=== PATIENT | female | born 1950 | race Caucasian/White ===

== ENCOUNTER → 2022-11-28 | Outpatient (CLI) | payer MEDICARE, SELFPAY | END | disposition home or self-care (01) | LOC: MFPLAB 15:14 | PROVIDERS: PCP Family Medicine; Visit Provider Family Medicine | DX: E03.9 Hypothyroidism, unspecified (principal) | CPT/HCPCS: 36415; 84443 ==

== ENCOUNTER → 2023-01-12 | Outpatient (CLI) | payer MEDICARE, SELFPAY ==
[2023-01-12 17:45] LABS: Absolute Lymphocyte Count 1.56 X10^3/uL (0.83-4.51); Absolute Neutrophil Count 5.2 X10^3/uL (2.0-7.7); Basophil# 0.04 X10^3/uL; Basophil% 0.5 % (0-1); Eosinophils% 1.3 % (0-5); Hematocrit 38.3 % (37-47); Hemoglobin 12.5 g/dL (12.0-15.0); Lymphocyte # 1.56 X10^3/ul (0.83-4.51); Lymphocyte % 20.7 % (19-41); Mean Corp Hgb Conc 32.6 g/dL (32-36); Mean Corpuscular Hgb 30.6 pg (27.0-32.0); Mean Corpuscular Volume 93.6 fL (81-99); Mean Platelet Vol. 11.3 fl (6.2-12.0); Monocyte# 0.55 X10^3/uL; Monocyte% 7.3 % (0-10); NRBC Flagged by Analyzer 0 % (0-5); Neutrophil # 5.24 X10^3/uL (2.7-7.7); Neutrophil % 69.8 % (47-70); Platelet Count 276 K/mm3 (150-450); RBC Distribution Width CV 12.9 % (11.6-14.6); RBC Distribution Width SD 44.4 fl (35.1-43.9); Red Blood Count 4.09 M/mm3 (4.2-5.4); White Blood Count 7.5 K/mm3 (4.4-11.0)
[2023-01-12 18:14] LABS: ALB/GLOB Ratio 1.3 RATIO (0.9-2.4); AST(SGOT) 14 U/L (15-37); Alanine Aminotransfer ALT/SGPT 15 U/L (13-56); Albumin, Serum 4.1 g/dL (3.2-5.0); Alkaline Phosphatase 74 U/L (45-117); Anion Gap 7 (5-15); BUN 17 mg/dL (7-18); BUN/Creat Ratio 24.3 RATIO (10-20); Calcium,Total 10.1 mg/dL (8.5-10.1); Chloride 108 mmol/L (98-107); Cholesterol 205 mg/dL (200); EST Glomerular Filtration Rate 88 mL/min (>60); Est Glom Filt Rate - Afr Amer 106 mL/min (>60); Globulin 3.2 g/dL (2.2-4.2); Glucose 120 mg/dL (74-106); High Density Lipoprotein 63 mg/dL; Potassium 3.8 mmol/L (3.5-5.1); Protein, Total 7.3 g/dL (6.4-8.2); Sodium Level 142 mmol/L (136-145); Triglycerides 387 mg/dL; Very Low Density Lipoprotein 77 mg/dL (5-40)
[2023-01-16 17:15] LABS: Vitamin D,25 Hydroxy 35.1 ng/mL
== END | disposition home or self-care (01) ==
LOC: MFPLAB 14:40
PROVIDERS: PCP Family Medicine; Visit Provider Family Medicine
DX: I10 Essential (primary) hypertension (principal); R53.83 Other fatigue; M81.0 Age-related osteoporosis without current pathological fracture
CPT/HCPCS: 36415; 80053; 80061; 82306; 82533; 85025

== ENCOUNTER → 2023-01-25 | Outpatient (CLI) | payer MEDICARE, SELFPAY ==
[2023-01-25 11:17] LABS: Hemoglobin A1c 5.2 % (3.8-5.6)
== END | disposition home or self-care (01) ==
LOC: MTLAB 08:56
PROVIDERS: PCP Family Medicine; Visit Provider Family Medicine
DX: R73.9 Hyperglycemia, unspecified (principal)
CPT/HCPCS: 36415; 83036

== ENCOUNTER → 2023-04-17 | Outpatient (CLI) | payer MEDICARE, SELFPAY ==
[2023-04-17 12:56] LABS: Thyroid Stim Hormone (TSH) 1.08 uIU/mL (0.358-3.74)
== END | disposition home or self-care (01) ==
LOC: MFPLAB 09:48
PROVIDERS: PCP Family Medicine; Visit Provider Family Medicine
DX: E03.9 Hypothyroidism, unspecified (principal)
CPT/HCPCS: 36415; 84443

== ENCOUNTER → 2023-05-25 | Outpatient (CLI) | payer MEDICARE, SELFPAY ==
--- NOTE | 2023-05-25 15:03 | CT_ITS ---
STUDY: CT BRAIN WITHOUT CONTRAST REASON FOR EXAM: Female, 72 years old. Head injury RADIATION DOSAGE (If Supplied By Facility): CTDIvol = ( 44.99 ) mGy, DLP = ( 815.79 ) mGycm TECHNIQUE: Transaxial CT imaging of the brain was performed without administration of intravenous contrast material. Individualized dose optimization techniques were used for this CT. COMPARISON: No relevant priors. FINDINGS: Normal soft tissue structures. Normal calvarium. There is mild cerebral atrophy with widening of the extra-axial spaces and ventricular dilatation. There are areas of decreased attenuation within the white matter tracts of the supratentorial brain, consistent with microvascular disease changes. 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 Normal brainstem. Normal cerebellum. There is no intracranial hemorrhage. There are no findings of an acute ischemic infarction. Normal visualized paranasal sinuses. CT/Brain/Head without Contrast IMPRESSION: Chronic involutional changes of the brain. Electronically Signed: Balbir Verma MD at 15:21 EST ,
== END | disposition home or self-care (01) ==
LOC: CT 14:50
PROVIDERS: PCP Family Medicine; Referring Provider Family Medicine; Visit Provider Family Medicine
DX: S09.90XA Unspecified injury of head, initial encounter (principal); X58.XXXA Exposure to other specified factors, initial encounter
CPT/HCPCS: 70450

== ENCOUNTER → 2023-09-06 | Outpatient (CLI) | payer MEDICARE, SELFPAY ==
[2023-09-06 13:36] LABS: Mucous, Urine 0 SEEN /hpf (<or=2+); Red Blood Cells-Urine 0 SEEN /hpf (0-5); Squamous Epithelial Cells - UA 0 SEEN /hpf (5-10)
[2023-09-06 15:04] LABS: Color, Urine Yellow (Yellow); Glucose, Dipstick Normal (Normal); Ketone-Dipstick 5 mg/dl (Negative); Leukocyte Esterase-Dipstick 500 /ul (Negative); Nitrite-Dipstick Positive (Negative); Occult Blood-Urine 25 /ul (Negative); Protein-Dipstick 30 mg/dl (Negative); Specific Gravity, Urine 1.025 (1.002-1.030); Urine Bilirubin Dipstick Negative (Negative); Urine Clarity Sl. Cloudy (Clear); Urine Urobilinogen Normal (Normal)
[2023-09-06 15:37] LABS: Bacteria 3+ /hpf (None Seen); White Blood Cells 50-100 SEEN /hpf (0-5)
[2023-09-06 15:40] LABS: Vitamin B12 > 2000 pg/mL (211-911); Vitamin D,25 Hydroxy 30.7 ng/mL
[2023-09-06 16:09] LABS: ALB/GLOB Ratio 1.1 RATIO (0.9-2.4); AST(SGOT) 23 U/L (15-37); Alanine Aminotransfer ALT/SGPT 48 U/L (13-56); Albumin, Serum 4.1 g/dL (3.2-5.0); Alkaline Phosphatase 130 U/L (45-117); Anion Gap 8 (5-15); BUN 19 mg/dL (7-18); Calcium,Total 9.8 mg/dL (8.5-10.1); Chloride 108 mmol/L (98-107); Cholesterol 385 mg/dL (200); Creatinine, Serum 0.66 mg/dL (0.55-1.02); EST Glomerular Filtration Rate 95 mL/min (>60); Est Glom Filt Rate - Afr Amer 115 mL/min (>60); Free T3 2.4 pg/mL (2.18-3.98); Globulin 3.6 g/dL (2.2-4.2); Glucose 95 mg/dL (74-106); High Density Lipoprotein 43 mg/dL; Potassium 4.1 mmol/L (3.5-5.1); Protein, Total 7.7 g/dL (6.4-8.2); Sodium Level 141 mmol/L (136-145); T4 Free Direct 1.18 ng/dL (0.76-1.46); Thyroid Stim Hormone (TSH) 1.07 uIU/mL (0.358-3.74); Triglycerides 665 mg/dL
== END | disposition home or self-care (01) ==
LOC: MFPLAB 12:32
PROVIDERS: PCP Family Medicine; Visit Provider Family Medicine
DX: I10 Essential (primary) hypertension (principal); G20.A1 Parkinson's disease without dyskinesia, without mention of fluctuations; E78.5 Hyperlipidemia, unspecified; E03.9 Hypothyroidism, unspecified; E55.9 Vitamin D deficiency, unspecified; R30.0 Dysuria
CPT/HCPCS: 36415; 80053; 80061; 81001; 82306; 82607; 82746; 84439; 84443; 84481; 87077; 87086; 87088; 87186

== ENCOUNTER 2023-10-31 11:30 | Outpatient (RCR) | payer MEDICARE, SELFPAY ==
--- NOTE | 2023-07-23 16:13 | HP.PTEVAL_ITS ---
Patient's Visit Information Visit Information Visit Information: KIARA VAUGHN is a 72 year old F referred to Physical Therapy by Ayde Obrien MD with a diagnosis of Parkinsons without dyskinesia. Date of Evaluation: 07/23/23 Physical Therapist: FLORIN Gomez Visit Plan Frequency: 2x /Week Duration: 2 Months Plan: 2X/ week for 8 weeks for gait training, balance, sit to stand transfers, dual tasking, endurance with HEP Subjective Subjective: Pt was diagnosed with PD about a year ago. The Dr recommended that she take regular exercise. She rides a stationary bike for 30 min about once a day. She has trouble getting out of a chair. She sleeps in a bed and takes meds to sleep and sleeps good. She is able to roll around the bed. She takes a bath in tub and she is using a stool to shower in the bathtub and has a hand held shower head also. She does not drive. She has had several falls since May 14 3-4 falls. She stumbled on a rug a few times and gotten rid of those. She does not remember her falls but her thinks BW mostly. She uses the can all the time even in the house. She feels that her R arm is discordinated and decreased handwriting. She is struggling with folding and washing and putting things in the dryer. She feels fine when she gets up in the morning and by 10:00 she will feel wooy... she feels like she is going to fall even in sitting. Steps: in front of her and uses a handrail with 2 feet to a stair. Objective Objective: Gait: PT WALKs with a straight cane or holding onto her husbands arm looking straight ahead. She is able to walk with a rolling walker with increase confidence and able to turn her head with gait more confidently Sit to stand: stood up using B UE's with retro LOB back into the chair with no weight shift FW. To sit back down in the chair she holds heavily onto B chair rails and plops into the chair Seated opp arm and leg... able to do until about 12 and then goes to same side... about the same in standing but with very little weight shift LE MMT: R hip flex 13.3 and L 11.5 R knee ext 24.6 and L 27 R knee flex 12.7 and L knee flex 8.8 Standing heel and toe raises: pt is able to do that but needs UE support and only able to raise them partly Standing with feet together she had some increase sway. Standing with feet together with horizontal head turns she got a little woozy feeling but normally feels this way this time of day. FGA 8 Balance/Special Test Scores Functional Gait Assessment Score: 8 % Disability: 73.3400 Lower Extremity Functional Score: 7 Goals Goal 1:: I HEP Goal Time Frame: 6-8 Weeks Goal 2:: Increase balance (FGA 8 at eval) Goal Time Frame: 6-8 Weeks Goal 3:: Be able to sit to stand out of a chair X 10 in a row with no UE and no LOB including falling BW into her chair Goal Time Frame: 6-8 Weeks Goal 4:: Be able to walk with a straight cane 150 fee without veering with CGA and some occ head turns without LOB as well or dizziness Goal Time Frame: 6-8 Weeks Goal 5:: Be able to complet X 20 in a row opp arm and leg tasks with a mind task without messing up Goal Time Frame: 6-8 Weeks Rehabilitation Potential Rehabilitation Potential: Good Anticipated Interventions Patient/Client Instruction: Educate patient on: Condition and Plan of Care For the Purpose of:: To increase ROM, To improve muscle performance and motor function, To improve ability to perform ADL's, To increase tolerance to activity/condition/position, To improve performance and independence with ADL's, To decrease level of supervision to perform tasks, To improve ability of physical actions for home/community/work/leisure, To improve gait and locomotor functions, To decrease soft tissue restriction, To improve endurance, To improve balance and To improve safety with gait Therapeutic Exercise to Include: Strength training, Endurance training, Balance training, Coordination, Body mechanics, Postural training, Flexibilty training, Gait and locomotor training, Neuromotor development, Active ROM and Dynamic Lumbar Stabilization For the Purpose of:: To decrease pain, To increase ROM, To improve nutrient delivery to tissue, To improve muscle performance and motor function, To improve ability to perform ADL's, To increase tolerance to activity/condition/position, To decrease level of supervision to perform tasks, To improve ability of p hysical actions for home/community/work/leisure, To improve gait and locomotor functions, To improve health of tissue, To decrease soft tissue restriction, To increase flexibility/ROM, To improve endurance, To improve balance and To improve safety with gait Functional Training to Include: Gait training For the Purpose of:: To improve gait and locomotor functions and To improve safety with gait Text: Thank you for the opportunity to evaluate your patient. For Medicare and Medicare HMO plans, please review the plan of care and approve it. It will need to be FAXED BACK to us at [phone] for Medicare purposes. For Medicare only, by signing this I certify the plan of care. Please let me know if there are questions or concerns regarding this plan of care. Physician Signature: Date:
--- NOTE | 2023-08-27 15:26 | HP.PTEVAL_ITS ---
Patient's Visit Information Visit Information Visit Information: KIARA VAUGHN is a 72 year old F referred to Physical Therapy by Ayde Obrien MD with a diagnosis of Parkinsons without dyskinesia. Date of Evaluation: 07/23/23 Physical Therapist: FLORIN Gomez Visit Plan Frequency: 2x /Week Duration: 2 Months Plan: Pt to work on standing with holding hand with head and eye m ovements together. Try and work on staggered stance head movements 2X/ week for 8 weeks for gait training, balance, sit to stand transfers, dual tasking, endurance with HEP Subjective Subjective: Pt was diagnosed with PD about a year ago. The Dr recommended that she take regular exercise. She rides a stationary bike for 30 min about once a day. She has trouble getting out of a chair. She sleeps in a bed and takes meds to sleep and sleeps good. She is able to roll around the bed. She takes a bath in tub and she is using a stool to shower in the bathtub and has a hand held shower head also. She does not drive. She has had several falls since May 14 3-4 falls. She stumbled on a rug a few times and gotten rid of those. She does not remember her falls but her thinks BW mostly. She uses the can all the time even in the house. She feels that her R arm is discordinated and decreased handwriting. She is struggling with folding and washing and putting things in the dryer. She feels fine when she gets up in the morning and by 10:00 she will feel wooy... she feels like she is going to fall even in sitting. Steps: in front of her and uses a handrail with 2 feet to a stair. Objective Objective: Gait: PT WALKs with a straight cane or holding onto her husbands arm looking straight ahead. She is able to walk with a rolling walker with increase confidence and able to turn her head with gait more confidently Sit to stand: stood up using B UE's with retro LOB back into the chair with no weight shift FW. To sit back down in the chair she holds heavily onto B chair rails and plops into the chair Seated opp arm and leg... able to do until about 12 and then goes to same side... about the same in standing but with very little weight shift LE MMT: R hip flex 13.3 and L 11.5 R knee ext 24.6 and L 27 R knee flex 12.7 and L knee flex 8.8 Standing heel and toe raises: pt is able to do that but needs UE support and only able to raise them partly Standing with feet together she had some increase sway. Standing with feet together with horizontal head turns she got a little woozy feeling but normally feels this way this time of day. FGA 8 Balance/Special Test Scores Functional Gait Assessment Score: 8 % Disability: 73.3400 Lower Extremity Functional Score: 7 Goals Goal 1:: I HEP Goal Time Frame: 6-8 Weeks Goal 2:: Increase balance (FGA 8 at [facility]) Goal Time Frame: 6-8 Weeks Goal 3:: Be able to sit to stand out of a chair X 10 in a row with no UE and no LOB including falling BW into her chair Goal Time Frame: 6-8 Weeks Goal 4:: Be able to walk with a straight cane 150 fee without veering with CGA and some occ head turns without LOB as well or dizziness Goal Time Frame: 6-8 Weeks Goal 5:: Be able to complet X 20 in a row opp arm and leg tasks with a mind task without messing up Goal Time Frame: 6-8 Weeks Rehabilitation Potential Rehabilitation Potential: Good Anticipated Interventions Patient/Client Instruction: Educate patient on: Condition and Plan of Care For the Purpose of:: To increase ROM, To improve muscle performance and motor function, To improve ability to perform ADL's, To increase tolerance to activity/condition/position, To improve performance and independence with ADL's, To decrease level of supervision to perform tasks, To improve ability of physical actions for home/community/work/leisure, To improve gait and locomotor functions, To decrease soft tissue restriction, To improve endurance, To improve balance and To improve safety with gait Therapeutic Exercise to Include: Strength training, Endurance training, Balance training, Coordination, Body mechanics, Postural training, Flexibilty training, Gait and locomotor training, Neuromotor development, Active ROM and Dynamic Lumbar Stabilization For the Purpose of:: To decrease pain, To increase ROM, To improve nutrient delivery to tissue, To improve muscle performance and motor function, To improve ability to perform ADL's, To increase tolerance to activity/condition/position, To decrease level of supervision to perform tasks, To improve ability of physical actions for home/community/work/leisure, To improve gait and locomotor functions, To improve health of tissue, To decrease soft tissue restriction, To increase flexibility/ROM, To improve endurance, To improve balance and To improve safety with gait Functional Training to Include: Gait training For the Purpose of:: To improve gait and locomotor functions and To improve safety with gait Text: Thank you for the opportunity to evaluate your patient. For Medicare and Medicare HMO plans, please review the plan of care and approve it. It will need to be FAXED BACK to us at [phone] for Medicare purposes. For Medicare only, by signing this I certify the plan of care. Please let me know if there are questions or concerns regarding this plan of care. Physician Signature: Date:
--- NOTE | 2023-09-19 12:08 | HP.PTREVAL ---
Re-Evaluation Intro: Ayde Obrien MD, It has been my pleasure to treat KIARA VAUGHN over the last 15 visits for Parkinsons without dyskinesia. Please see the progress note below for an update on the physical therapy plan of care! Subjective Subjective: No dizziness since she started the pills for her UTI. She feels that her balance has been better since the medication but her still sees her being wobbly. Pt is using her rollator or a walker at all times. reports that getting out of a car, steps, and sit to stand remain an issue. also reports that they will be doing a trial for people with PSP Objective Objective/Function: Stairs: up recip with 2 rails and down step 2 pattern with 2 hand rails FGA: Sitting opp arm and leg: smaller motions and would speed up and slow down her ROM and messed up consistently at 8 on each side Gait with rollator is smooth and no veering and she even initiates turning her head with gait Sit to stand: if cued she will pull self to edge of chair and stand up with weight shift FW. If asked to get up and will have retro LOB and not weight shift FW Plan Plan Plan: 2X/ week for 8 weeks for gait training, balance, sit to stand transfers, dual tasking, endurance with HEP Balance/Gait/Functional tests Balance/Special Test Scores Functional Gait Assessment Score: 10 % Disability: 66.6700 Lower Extremity Functional Score: 19 Goals Goals Goal 1:: I HEP Goal Time Frame: 6-8 Weeks Goal 2:: Increase balance (FGA 8 at eval) Goal Time Frame: 6-8 Weeks Goal 3:: Be able to sit to stand out of a chair X 10 in a row with no UE and no LOB including falling BW into her chair Goal Time Frame: 6-8 Weeks Goal 4:: Be able to walk with a straight cane 150 fee without veering with CGA and some occ head turns without LOB as well or dizziness Goal Time Frame: 6-8 Weeks Goal 5:: Be able to complet X 20 in a row opp arm and leg tasks with a mind task without messing up Goal Time Frame: 6-8 Weeks Anticipated Interventions Anticipated Interventions Patient/Client Instruction: Educate patient on: Condition and Plan of Care For the Purpose of:: To increase ROM, To improve muscle performance and motor function, To improve ability to perform ADL's, To increase tolerance to activity/condition/position, To improve performance and independence with ADL's, To decrease level of supervision to perform tasks, To improve ability of physical actions for home/community/work/leisure, To improve gait and locomotor functions, To decrease soft tissue restriction, To improve endurance, To improve balance and To improve safety with gait Therapeutic Exercise to Include: Strength training, Endurance training, Balance training, Coordination, Body mechanics, Postural training, Flexibilty training, Gait and locomotor training, Neuromotor development, Active ROM and Dynamic Lumbar Stabilization For the Purpose of:: To decrease pain, To increase ROM, To improve nutrient delivery to tissue, To improve muscle performance and motor function, To improve ability to perform ADL's, To increase tolerance to activity/condition/position, To decrease level of supervision to perform tasks, To improve ability of physical actions for home/community/work/leisure, To improve gait and locomotor functions, To improve health of tissue, To decrease soft tissue restriction, To increase flexibility/ROM, To improve endurance, To improve balance and To improve safety with gait Functional Training to Include: Gait training For the Purpose of:: To improve gait and locomotor functions and To improve safety with gait Re-Evaluation Ending Re-evaluation ending: Please do not hesitate to contact me at [phone] by phone or if you have questions or concerns regarding this new plan of care! Sincerely, FLORIN Gomez
--- NOTE | 2023-10-03 12:28 | HP.PTREVAL ---
Re-Evaluation Intro: Ayde Obrien MD, It has been my pleasure to treat KIARA VAUGHN over the last 17 visits for Parkinsons without dyskinesia. Please see the progress note below for an update on the physical therapy plan of care! Subjective Subjective: reports that she is not moving her legs better inside and outside the car. no dizziness. Uses her rollator all the time now. She had a fall the other day reaching for a cord and does not remember much of it and found her sitting on a stool and she does not remember. She is going into a trial for PCP in November. Objective Objective/Function: Sit to stand has improved but still picks up toes at times and retro fall back into the chair occ. Inconsistent with weight shift FW but more consistent than at initial eval molded goods spot picker cones X 7 from the floor with no holding on with heavy CGA incase she fell fw and did not Pt walking with CGA with NO AD with MIN to MOD A at times for increase veering or tripping on the R toe and almost falling FW. Plan Plan Plan: 1X/ week for 6 weeks for balance with a cane, changing direction with walking, balance with changing direction, picking up object from the floor, weight shift with standing etc, balance activites, with HEP (possible over the counter AFO on the R foot) Balance/Gait/Functional tests Balance/Special Test Scores Functional Gait Assessment Score: 10 % Disability: 66.6700 Lower Extremity Functional Score: 19 Goals Goals Goal 1:: I HEP Goal Time Frame: 6-8 Weeks Goal 2:: Increase balance (FGA 8 at eval) Goal Time Frame: 6-8 Weeks Goal 3:: Be able to sit to stand out of a chair X 10 in a row with no UE and no LOB including falling BW into her chair Goal Time Frame: 6-8 Weeks Goal Progress: Progressing Goal 4:: Be able to walk with a straight cane 75 feet without veering with CGA Goal Time Frame: 6-8 Weeks Goal Progress: Progressing Goal 5:: Be able to complet X 20 in a row opp arm and leg tasks with a mind task without messing up Goal Time Frame: 6-8 Weeks Goal Progress: Progressing Anticipated Interventions Anticipated Interventions Patient/Client Instruction: Educate patient on: Condition and Plan of Care For the Purpose of:: To increase ROM, To improve muscle performance and motor function, To improve ability to perform ADL's, To increase tolerance to activity/condition/position, To improve performance and independence with ADL's, To decrease level of supervision to perform tasks, To improve ability of physical actions for home/community/work/leisure, To improve gait and locomotor functions, To decrease soft tissue restriction, To improve endurance, To improve balance and To improve safety with gait Therapeutic Exercise to Include: Strength training, Endurance training, Balance training, Coordination, Body mechanics, Postural training, Flexibilty training, Gait and locomotor training, Neuromotor development, Active ROM and Dynamic Lumbar Stabilization For the Purpose of:: To decrease pain, To increase ROM, To improve nutrient delivery to tissue, To improve muscle performance and motor function, To improve ability to perform ADL's, To increase tolerance to activity/condition/position, To decrease level of supervision to perform tasks, To improve ability of physical actions for home/community/work/leisure, To improve gait and locomotor functions, To improve health of tissue, To decrease soft tissue restriction, To increase flexibility/ROM, To improve endurance, To improve balance and To improve safety with gait Functional Training to Include: Gait training For the Purpose of:: To improve gait and locomotor functions and To improve safety with gait Re-Evaluation Ending Re-evaluation ending: Please do not hesitate to contact me at [phone] by phone or if you have questions or concerns regarding this new plan of care! Sincerely, FLORIN Gomez
--- NOTE | 2023-11-12 15:48 | HP.PT.NRP ---
Patient Information Patient Information: KIARA VAUGHN was seen in my office for initial evaluation on 07/23/23. The following Plan of Care was established for this patient: POC Established Initial Frequency: 2x /Week Initial Duration: 2 Months Anticipated Interventions Patient/Client Instruction: Educate patient on: Condition and Plan of Care For the Purpose of:: To increase ROM, To improve muscle performance and motor function, To improve ability to perform ADL's, To increase tolerance to activity/condition/position, To improve performance and independence with ADL's, To decrease level of supervision to perform tasks, To improve ability of physical actions for home/community/work/leisure, To improve gait and locomotor functions, To decrease soft tissue restriction, To improve endurance, To improve balance and To improve safety with gait Therapeutic Exercise to Include: Strength training, Endurance training, Balance training, Coordination, Body mechanics, Postural training, Flexibilty training, Gait and locomotor training, Neuromotor development, Active ROM and Dynamic Lumbar Stabilization For the Purpose of:: To decrease pain, To increase ROM, To improve nutrient delivery to tissue, To improve muscle performance and motor function, To improve ability to perform ADL's, To increase tolerance to activity/condition/position, To decrease level of supervision to perform tasks, To improve ability of physical actions for home/community/work/leisure, To improve gait and locomotor functions, To improve health of tissue, To decrease soft tissue restriction, To increase flexibility/ROM, To improve endurance, To improve balance and To improve safety with gait Functional Training to Include: Gait training For the Purpose of:: To improve gait and locomotor functions and To improve safety with gait Last Seen Last Seen: This patient was last seen in our office 10/31/23. Pertinent comments regarding their Physical therapy will appear below: DC PT to Home Health At this point I will be discontinuing this patient from physical therapy. I would be happy to see this patient again in the future if found appropriate by the physician. Thank you! Pam Bailey, FLORIN Balance/Gait/Functional tests Balance/Special Test Scores Functional Gait Assessment Score: 10 % Disability: 66.6700 Lower Extremity Functional Score: 19
== END 2023-10-31 19:00 | disposition home or self-care (01) ==
LOC: PT 11:30
PROVIDERS: PCP Family Medicine; Referring Provider Family Medicine; Visit Provider Family Medicine
DX: G20.A1 Parkinson's disease without dyskinesia, without mention of fluctuations (principal)
CPT/HCPCS: 97110; 97162; 97530

== ENCOUNTER 2023-11-06 13:00 | Outpatient (RCR) | payer MEDICARE, SELFPAY ==
[2023-11-06 13:54] LABS: Color, Urine Yellow (Yellow); Glucose, Dipstick Normal (Normal); Ketone-Dipstick Negative (Negative); Leukocyte Esterase-Dipstick 25 /ul (Negative); Nitrite-Dipstick Negative (Negative); Occult Blood-Urine Negative /ul (Negative); Protein-Dipstick Negative (Negative); Specific Gravity, Urine 1.015 (1.002-1.030); Urine Bilirubin Dipstick Negative (Negative); Urine Clarity Clear (Clear); Urine Urobilinogen Normal (Normal); Urine pH 6.5 (5.0 - 8.0)
== END 2023-11-06 18:00 | disposition home or self-care (01) ==
LOC: HHLAB 13:00
PROVIDERS: PCP Family Medicine
DX: I95.89 Other hypotension (principal)
CPT/HCPCS: 81002; 87086; 87088

== ENCOUNTER → 2023-12-13 | Outpatient (CLI) | payer MEDICARE, SELFPAY ==
[2023-12-13 11:28] LABS: Mucous, Urine 0 SEEN /hpf (<or=2+); Red Blood Cells-Urine 0 SEEN /hpf (0-5)
[2023-12-13 16:00] LABS: Color, Urine Yellow (Yellow); Glucose, Dipstick Normal (Normal); Ketone-Dipstick Negative (Negative); Leukocyte Esterase-Dipstick Negative /ul (Negative); Nitrite-Dipstick Negative (Negative); Occult Blood-Urine Negative /ul (Negative); Protein-Dipstick Negative (Negative); Specific Gravity, Urine 1.015 (1.002-1.030); Urine Bilirubin Dipstick Negative (Negative); Urine Clarity Sl. Cloudy (Clear); Urine Urobilinogen Normal (Normal)
[2023-12-13 16:17] LABS: Bacteria 1+ /hpf (None Seen); Squamous Epithelial Cells - UA 0-5 SEEN /hpf (5-10); White Blood Cells 0-5 SEEN /hpf (0-5)
== END | disposition home or self-care (01) ==
LOC: MTLAB 11:25
PROVIDERS: PCP Family Medicine; Referring Provider Family Medicine; Visit Provider Family Medicine
DX: R39.9 Unspecified symptoms and signs involving the genitourinary system (principal)
CPT/HCPCS: 81001; 87086

== ENCOUNTER 2023-12-26 10:58 | Emergency (ER) | payer MEDICARE, SELFPAY ==
[2023-12-26] VITALS (8 sets, daily range): BP systolic 155–178; BP diastolic 71–97; PULSE 78–90; RESP 16–18; TEMP 36.3–36.7; O2SAT 95–100; BMI 24.3
--- NOTE | 2023-12-26 11:09 | EX.ED.DYSGE1 ---
HPI History of Present Illness Chief Complaint: Constipation [facility] Medical History History of right breast cancer History of blood clots Cystocele hypercalcium Hypothyroidism Parathyroid abnormality High triglycerides High cholesterol HTN (hypertension) abnormal calcium level Goiter Breast cancer H/O transfusion of whole blood H/O blood clots Anemia Seasonal allergies Home Medications ?Medication ?Instructions ?Recorded ?Last Taken ?Type amlodipine 5 mg tablet 5 mg PO QDAY 07/30/17 Unknown History aspirin 81 mg tablet,delayed PO 07/30/17 Unknown History release (Adult Aspirin Regimen) atorvastatin 10 mg tablet 10 mg PO QDAY 07/30/17 Unknown History fenofibrate 160 mg tablet 160 mg PO QDAY 07/30/17 Unknown History levothyroxine 75 mcg capsule PO 07/30/17 Unknown History loratadine 10 mg tablet (Claritin) 10 mg PO QDAY 07/30/17 Unknown History ramipril 10 mg capsule 10 mg PO QDAY 07/30/17 Unknown History cholecalciferol (vitamin D3) 125 5,000 unit PO DAILY 02/12/19 Unknown History mcg (5,000 unit) capsule Allergy/AdvReac Type Severity Reaction Status Date / Time adhesive tape Allergy Severe Unknown Verified 12/26/23 10:59 animal dander Allergy Severe Unknown Verified 12/26/23 10:59 latex Allergy Severe Unknown Verified 12/26/23 10:59 Seasonal Allergies: Uncoded Allergy NEEDS Verified 12/26/23 10:59 FOLLOW-UP Family History Mother Arthritis Breast cancer Heart disease Hypertension High cholesterol CVA (cerebral vascular accident) Father High cholesterol Hypertension Thyroid disorder Sister High cholesterol Thyroid disorder Brother Hypertension Surgical History H/O lumpectomy H/O colonoscopy hysterectomy with pelvic floor repair H/O partial thyroidectomy Social History (Updated 02/12/19 @ 13:[address] Michele Elizabeth MD) Smoking Status: Never smoker second hand exposure: No alcohol intake: never substance use type: does not use caffeine: Yes what type of physical activity do you participate in: walking seatbelt use: always do you feel safe at home: Yes additional social history: Krista cruz are retired EXAM Physical Exam Const Vital Signs: 12/26/23 10:59 12/26/23 11:02 12/26/23 12:02 Temperature 97.4 F L 98.0 F 98.0 F Temperature Source Temporal Oral Oral Pulse Rate 87 90 85 Respiratory Rate 16 18 18 Blood Pressure 155/71 H 162/84 H 160/90 H Blood Pressure Mean 99 110 113 Pulse Ox 100 96 98 Oxygen Delivery Method Room Air Room Air Room Air 12/26/23 13:00 12/26/23 14:00 12/26/23 14:14 Temperature 98.0 F 97.6 F L Temperature Source Oral Oral Pulse Rate 84 84 78 Respiratory Rate 16 18 Blood Pressure 162/87 H 159/82 H 159/82 H Blood Pressure Mean 112 107 107 Pulse Ox 98 97 95 Oxygen Delivery Method Room Air Room Air Room Air [facility] MDM MDM Narrative Medical decision making narrative: HISTORY OF PRESENT ILLNESS: 73-year-old female presents with constipation. No small bowel movements. Notes leakage. Notes increased urination as well. The patient and family further states the patient has not had a normal bowel approximate 3 weeks. Note leaking of stool. Note excessive urination. Denies fever or vomiting. Denies chest pain. Notes history of abdominal surgeries but cannot endorse which ones. Denies vaginal bleeding or discharge. REVIEW OF SYSTEMS: Pertinent positives: Constipation, urinary frequency Pertinent negatives: Chest pain, vomiting PHYSICAL EXAM: Nursing triage notes reviewed, Vital signs reviewed Constitutional: please see mdm HENT: MMM Eyes: Pupils equal round and reactive to light, Extraocular muscles intact Neck: No stridor, no JVD, full neck ROM Lungs: Clear to auscultation, No wheezing or rales. No increased work of breathing, no conversational dyspnea, no accessory muscle use, no nasal flaring. No respiratory distress noted Heart: Regular rate and rhythm, No murmurs, No rubs and No gallops, 2+ distal pulses (radial, femoral, posterior tibial) in all extremities Abdomen: Soft, there is no tenderness, rigidity, rebound or guarding, no obvious peritoneal signs, no palpable pulsatile abdominal masses, no auscultated abdominal bruit : No CVAT Extremities: No edema Neuro: No focal neurological deficits, cranial nerves II through XII intact, 5/5 strength in all extremities. Intact sensation to light touch in all extremities, 2+ reflexes bilateral patella tendons. Normal gait. No ataxia. Skin: No rash or lesions noted MEDICAL DECISION MAKING: Chief Complaint: Constipation External records reviewed: Imaging reviewed: Recent [place] imaging of the abdomen and pelvis noted Factors affecting care: Hypertension, hyperlipidemia, VTE Social determinants of health: none [] History obtained from others: Patient's family Consults: none [] [facility] Narrative: Patient was initially hypertensive with a blood pressure 155/71 otherwise afebrile and nontoxic-appearing. Exam benign. Abdominal exam is not consistent with perforation. I considered the following differential diagnosis: Small bowel obstruction, perforation, constipation, fecal impaction. A broad lab and imaging workup was obtained to further elucidate etiology the patient complaint. Initially treat the patient with IV fluid (1 L normal saline), 4 mg of Zofran for resuscitation and symptomatic control. ALL IMAGES (IF OBTAINED) HAVE BEEN PERSONALLY REVIEWED AND INTERPRETED BY MYSELF. CT scan abdomen pelvis shows no evidence of bowel obstruction or fecal impaction CBC without leukocytosis, severe anemia, no thrombocytopenia. BMP without evidence of significant electrolyte abnormalities, no anion gap, no acute kidney injury. Lactate is wnl indicating no end-organ hypoperfusion and/or hypoxia. LFTs show no evidence of hepatobiliary pathology. Urinalysis shows no evidence of urinary inflammation suggestive of UTI The synthesis of the patient's history, physical exam, labs images suggest no acute life-limiting etiology. Suspect the patient is constipated. Will prescribe a bowel regimen for home-going. The patient and/or family, caregivers express understanding. The patient and/or family, caregivers agrees with the plan. Shared decision making: I will have a discussion with the patient and or visitors regarding risk/benefits of further testing or admission. They will be made aware of of the risk/benefits inherent in this decision they will be given the opportunity to voice understanding. Total critical care time today provided was at least 0 minutes. This excludes separately billable procedures. Critical care time (if documented) is secondary to the patient having high probability of clinically significant/life threatening deterioration in the patient's condition which required my urgent intervention. Impression: 1. Constipation 2. History of hypertension Dispo: Discharge home This note was generated with [employer] dictation software. It may contain incorrect words, spelling, and punctuation that were not noted in review of the chart prior to signing. Lab Data Labs: Laboratory Results - last 24 hr 12/26/23 12/26/23 12:20 14:12 WBC 10.4 RBC 5.10 Hgb 14.7 Hct 45.3 MCV 88.8 MCH 28.8 MCHC 32.5 RDW Std Deviation 42.2 RDW Coeff of Deanne 13.0 Plt Count 275 MPV 10.8 Immature Gran % (Auto) 0.600 Neut % (Auto) 68.4 Lymph % (Auto) 21.8 [place] % (Auto) 7.1 Eos % (Auto) 1.4 Baso % (Auto) 0.7 Absolute Neuts (auto) 7.1 Absolute Lymphs (auto) 2.27 Nucleated RBC % 0 Sodium 141 Potassium 3.8 Chloride 106 Carbon Dioxide 28.0 Anion Gap 7 BUN 17 Creatinine 0.69 Estim Creat Clear Calc 58.04 Est GFR (MDRD) Af Amer 107 Est GFR (MDRD) Non-Af 89 BUN/Creatinine Ratio 24.5 H Glucose 109 H Lactic Acid 1.0 Calcium 10.5 H Total Bilirubin 0.30 AST 26 ALT 49 Alkaline Phosphatase 102 Total Protein 7.7 Albumin 3.9 Globulin 3.8 Albumin/Globulin Ratio 1.0 Lipase 29 Urine Color Yellow Urine Clarity Clear Urine pH 7.0 Ur Specific [place] 1.010 Urine Protein Negative Urine Glucose (UA) Normal Urine Ketones Negative Urine Occult Blood Negative Urine Nitrite Negative Urine Bilirubin Negative Urine Urobilinogen Normal Ur Leukocyte Esterase Negative Radiography Diagnostic Testing: Clinical Impression(s) from Imaging Studies Abdomen/Pelvis CT 12/26/23 11:36 IMPRESSION: 1. Small pocket of air in the urinary bladder likely due to recent catheterization. Otherwise infectious process cannot be entirely excluded. 2. No focal acute inflammatory process. 3. Small umbilical hernia containing fat. Electronically Signed: Pietro Seo MD at 14:27 EDT , Discharge Plan Triage Chief Complaint: Constipation ED Provider: Louie Person Dx/Rx/DC Orders Prescriptions: No Action levothyroxine 75 mcg capsule PO atorvastatin 10 mg tablet 10 mg PO QDAY ramipril 10 mg capsule 10 mg PO QDAY fenofibrate 160 mg tablet 160 mg PO QDAY amlodipine 5 mg tablet 5 mg PO QDAY aspirin [Adult Aspirin Regimen] 81 mg tablet,delayed release (DR/EC) PO loratadine [Claritin] 10 mg tablet 10 mg PO QDAY cholecalciferol (vitamin D3) 5,000 unit capsule 5,000 unit PO DAILY Primary Care Provider: Ayde Obrien Referrals: Ayde Obrien MD [Primary Care Provider] - Print Language: Nigerian
--- NOTE | 2023-12-26 11:36 | CT_ITS ---
STUDY: CT ABDOMEN AND PELVIS WITH CONTRAST REASON FOR EXAM: Female, 73 years old. Constipation -- IV PO Contrast RADIATION DOSAGE (If Supplied By Facility): CTDIvol = ( 12.62 ) mGy, DLP = ( 613.68 ) mGycm TECHNIQUE: Oral and amp; IV Gastrografin and amp; 100mL Isovue-300 was administered. Transaxial images were obtained from the dome of the diaphragm to the symphysis pubis in the arterial, nephrographic and excretory phases. Multiplanar coronal and sagittal images were reformatted. The protocol utilizes one or more of the following dose reduction techniques: automated exposure control, adjustment of mA and/or kV according to patient size,and/or use of iterative reconstruction technique. COMPARISON: No relevant prior comparison study available FINDINGS: The visualized lung bases are unremarkable. The visualized portions of the heart are within normal limits. Mild diffuse hepatic steatosis. No focal lesion is seen. No focal lesion is seen. Multiple gallstones. Normal spleen. Normal pancreas. Normal bilateral adrenal glands. The stomach is not well distended. Normal in caliber small bowel loops. Fecal retention. No evidence of acute diverticulitis. The appendix is visualized and appears normal. Normal abdominal aorta. No retroperitoneal adenopathy. Normal right kidney. Normal left kidney. Small pocket of air within the bladder which may be due to recent catheterization. Otherwise infectious process cannot be excluded. There is absence of the uterus consistent with a prior hysterectomy. There is a small umbilical hernia containing fat. Degenerative changes in the lower lumbar spine. CT/Abdomen/Pelvis WITH Contrast IMPRESSION: 1. Small pocket of air in the urinary bladder likely due to recent catheterization. Otherwise infectious process cannot be entirely excluded. 2. No focal acute inflammatory process. 3. Small umbilical hernia containing fat. Electronically Signed: Pietro Seo MD at 14:27 EDT ,
[2023-12-26] MEDS: 0.9% Normal Saline (1000mL) 1,000 ML 999 ML IV (12:16)
[2023-12-26 12:38] LABS: Absolute Lymphocyte Count 2.27 X10^3/uL (0.83-4.51); Absolute Neutrophil Count 7.1 X10^3/uL (2.0-7.7); Basophil# 0.07 X10^3/uL; Basophil% 0.7 % (0-1); Eosinophil# 0.15 X10^3/uL; Eosinophils% 1.4 % (0-5); Hematocrit 45.3 % (37-47); Hemoglobin 14.7 g/dL (12.0-15.0); Lymphocyte # 2.27 X10^3/ul (0.83-4.51); Lymphocyte % 21.8 % (19-41); Mean Corp Hgb Conc 32.5 g/dL (32-36); Mean Corpuscular Hgb 28.8 pg (27.0-32.0); Mean Corpuscular Volume 88.8 fL (81-99); Mean Platelet Vol. 10.8 fl (6.2-12.0); Monocyte# 0.74 X10^3/uL; Monocyte% 7.1 % (0-10); NRBC Flagged by Analyzer 0 % (0-5); Neutrophil # 7.14 X10^3/uL (2.7-7.7); Neutrophil % 68.4 % (47-70); Platelet Count 275 K/mm3 (150-450); RBC Distribution Width SD 42.2 fl (35.1-43.9); White Blood Count 10.4 K/mm3 (4.4-11.0)
[2023-12-26 12:52] LABS: AST(SGOT) 26 U/L (15-37); Alanine Aminotransfer ALT/SGPT 49 U/L (13-56); Albumin, Serum 3.9 g/dL (3.2-5.0); Alkaline Phosphatase 102 U/L (45-117); Anion Gap 7 (5-15); BUN 17 mg/dL (7-18); BUN/Creat Ratio 24.5 RATIO (10-20); Calcium,Total 10.5 mg/dL (8.5-10.1); Chloride 106 mmol/L (98-107); Creatinine, Serum 0.69 mg/dL (0.55-1.02); EST Glomerular Filtration Rate 89 mL/min (>60); Est Glom Filt Rate - Afr Amer 107 mL/min (>60); Estimated Creatinine Clearance 58.04 ml/min; Globulin 3.8 g/dL (2.2-4.2); Glucose 109 mg/dL (74-106); Lipase 29 U/L (13-75); Potassium 3.8 mmol/L (3.5-5.1); Protein, Total 7.7 g/dL (6.4-8.2); Sodium Level 141 mmol/L (136-145)
[2023-12-26 14:22] LABS: Mucous, Urine 0 SEEN /hpf (<or=2+); Red Blood Cells-Urine 0 SEEN /hpf (0-5); White Blood Cells 0 SEEN /hpf (0-5)
[2023-12-26 14:43] LABS: Color, Urine Yellow (Yellow); Glucose, Dipstick Normal (Normal); Ketone-Dipstick Negative (Negative); Leukocyte Esterase-Dipstick Negative /ul (Negative); Nitrite-Dipstick Negative (Negative); Occult Blood-Urine Negative /ul (Negative); Protein-Dipstick Negative (Negative); Urine Bilirubin Dipstick Negative (Negative); Urine Clarity Clear (Clear); Urine Urobilinogen Normal (Normal)
[2023-12-26 15:06] LABS: Bacteria 1+ /hpf (None Seen); Squamous Epithelial Cells - UA 0-5 SEEN /hpf (5-10)
== END 2023-12-26 15:19 | disposition home or self-care (01) ==
PROVIDERS: Emergency Provider Emergency Medicine; PCP Family Medicine; Visit Provider Emergency Medicine
DX: K59.00 Constipation, unspecified (principal)
CPT/HCPCS: 74177; 80053; 81001; 83605; 83690; 85025; 96360; 96361; 99283; J7030; Q9967; A4216; J2405

== ENCOUNTER → 2023-12-27 | Outpatient (CLI) | payer MEDICARE, SELFPAY ==
--- NOTE | 2023-12-27 10:05 | RAD_ITS ---
STUDY: X-RAY - ESOPHAGUS (BARIUM SWALLOW) WITH FLUOROSCOPY REASON FOR EXAM: Female, 73 years old. Difficulty swallowing TECHNIQUE: 65 fluoroscopic view(s) of the esophagus were obtained following swallowing of barium. FLUOROSCOPY TIME (if supplied): (1 minute and 15 seconds.) minutes/seconds COMPARISON: None. FINDINGS: There is no demonstrated esophageal foreign body. There is no demonstrated stricture or mucosal abnormality. Normal gastroesophageal junction, without a demonstrated hiatal hernia. The patient was unable to ingest a 12 mm tablet of barium. There is atherosclerotic calcification of the aortic arch with tortuosity of the descending aorta. Normal visualized pulmonary parenchyma. Normal visualized osseous structures of the thorax. RAD/Esophagus Dual Contrast IMPRESSION: Normal plain film x-ray examination (barium swallow) of the esophagus. Patient was unable to swallow the 12 mm tablet of barium. Electronically Signed: Balbir Verma MD at 15:12 EDT ,
== END | disposition home or self-care (01) ==
LOC: RAD 09:58
PROVIDERS: PCP Family Medicine; Referring Provider Family Medicine; Visit Provider Family Medicine
DX: R13.10 Dysphagia, unspecified (principal)
CPT/HCPCS: 74221

== ENCOUNTER → 2023-12-31 | Outpatient (CLI) | payer MEDICARE, SELFPAY ==
--- NOTE | 2023-12-31 11:17 | US_ITS ---
STUDY: RENAL ULTRASOUND - COMPLETE REASON FOR EXAM: Female, 73 years old. UTI TECHNIQUE: Ultrasound evaluation of the kidneys was performed with real-time and static ely-scale imaging. COMPARISON: None. FINDINGS: RIGHT KIDNEY: Normal location of the right kidney, which is normal in size. The right kidney measures 9.8 cm. There is a normal cortex of the right kidney. The renal cortex measures 1.1 cm. There is no right renal mass or cyst. There are no right renal calculi. There is no right hydronephrosis. DISTAL RIGHT URETER: There is non-visualization of the distal right ureter. There is no demonstrated right ureterovesical junction calculus. There is a visualized right ureteral jet. LEFT KIDNEY: Normal location of the left kidney, which is normal in size. The left kidney measures 10.1 cm. There is a normal cortex of the left kidney. The renal cortex measures 1.0 cm. There is no left renal mass or cyst. There are no left renal calculi. There is no left hydronephrosis. DISTAL LEFT URETER: There is non-visualization of the distal left ureter. There is no demonstrated left ureterovesical junction calculus. There is a visualized left ureteral jet. BLADDER: The distended urinary bladder has a volume of 159 ml. The empty urinary bladder has a volume of 70 ml. There is a normal wall thickness of the distended urinary bladder. 1.8 cm oval isoechoic area of the base of the bladder only seen one view worrisome for mass. Correlation with cystoscopy would be useful. There are no demonstrated bladder calculi. US/Kidney and Bladder IMPRESSION: Normal ultrasound of the kidneys. Possible 1.8 cm mass in the base of bladder correlation with cystoscopy is recommended. Electronically Signed: Ady Zafar MD at 8:39 EDT ,
== END | disposition home or self-care (01) ==
LOC: US 11:14
PROVIDERS: PCP Family Medicine; Referring Provider Urology; Visit Provider Urology
DX: N39.0 Urinary tract infection, site not specified (principal)
CPT/HCPCS: 76770

== ENCOUNTER 2024-01-21 11:05 | Emergency (ER) | payer MEDICARE, SELFPAY ==
[2024-01-21 11:06] VITALS: BP 144/81; PULSE 102; RESP 16; TEMP 36.6; O2SAT 93
[2024-01-21 11:16] VITALS: BMI 24.3
--- NOTE | 2024-01-21 11:33 | EDS_ITS ---
HPI HPI - Fall History of Present Illness Chief Complaint: Fall PFSH PFSH Medical History History of right breast cancer History of blood clots Cystocele hypercalcium Hypothyroidism Parathyroid abnormality High triglycerides High cholesterol HTN (hypertension) abnormal calcium level Goiter Breast cancer H/O transfusion of whole blood H/O blood clots Anemia Seasonal allergies Home Medications ?Medication ?Instructions ?Recorded ?Last Taken ?Type amlodipine 5 mg tablet 5 mg PO QDAY 07/30/17 Unknown History aspirin 81 mg tablet,delayed PO 07/30/17 Unknown History release (Adult Aspirin Regimen) atorvastatin 10 mg tablet 10 mg PO QDAY 07/30/17 Unknown History fenofibrate 160 mg tablet 160 mg PO QDAY 07/30/17 Unknown History levothyroxine 75 mcg capsule PO 07/30/17 Unknown History loratadine 10 mg tablet (Claritin) 10 mg PO QDAY 07/30/17 Unknown History ramipril 10 mg capsule 10 mg PO QDAY 07/30/17 Unknown History cholecalciferol (vitamin D3) 125 5,000 unit PO DAILY 02/12/19 Unknown History mcg (5,000 unit) capsule Allergy/AdvReac Type Severity Reaction Status Date / Time adhesive tape Allergy Severe Unknown Verified 01/21/24 11:08 animal dander Allergy Severe Unknown Verified 01/21/24 11:08 latex Allergy Severe Unknown Verified 01/21/24 11:08 Seasonal Allergies: Uncoded Allergy NEEDS Verified 01/21/24 11:08 FOLLOW-UP Family History Mother Arthritis Breast cancer Heart disease Hypertension High cholesterol CVA (cerebral vascular accident) Father High cholesterol Hypertension Thyroid disorder Sister High cholesterol Thyroid disorder Brother Hypertension Surgical History H/O lumpectomy H/O colonoscopy hysterectomy with pelvic floor repair H/O partial thyroidectomy Social History (Updated 02/12/19 @ 13:[address] Michele Elizaebth MD) Smoking Status: Never smoker second hand exposure: No alcohol intake: never substance use type: does not use caffeine: Yes what type of physical activity do you participate in: walking seatbelt use: always do you feel safe at home: Yes additional social history: Krista cruz are retired EXAM Physical Exam Const Vital Signs: 01/21/24 11:06 01/21/24 11:16 01/21/24 12:05 Temperature 97.8 F Temperature Source Temporal Pulse Rate 102 H 89 Respiratory Rate 16 16 Respiratory Effort Normal Respiratory Depth Normal Respiratory Pattern Normal Blood Pressure 144/81 H 155/84 H Blood Pressure Mean 102 107 Pulse Ox 93 95 Oxygen Delivery Method Room Air Room Air Room Air 01/21/24 13:00 01/21/24 14:00 01/21/24 14:21 Temperature 97.8 F Temperature Source Pulse Rate 98 89 92 Respiratory Rate 16 16 16 Respiratory Effort Respiratory Depth Respiratory Pattern Blood Pressure 156/77 H 161/75 H 158/74 H Blood Pressure Mean 103 103 102 Pulse Ox 99 97 97 Oxygen Delivery Method Room Air MDM MDM MDM Narrative Medical decision making narrative: HISTORY OF PRESENT ILLNESS: 73-year-old female here with complaints of mechanical fall from standing. Occu rred just prior to arrival. Fall was unwitnessed. Patient reports head trauma, headache. Denies syncope. Denies focal weakness. Denies any other complaints. REVIEW OF SYSTEMS: Pertinent positives: Fall, head trauma Pertinent negatives: urinary complaints, PHYSICAL EXAM: Nursing triage notes reviewed, Vital signs reviewed Primary Survey Airway: Intact Breathing: Bilateral breath sounds Circulation: Palpable bilateral femorals, Palpable bilateral radial, Palpable bilateral DP and Palpable bilateral PT Disability / Spine precautions GCS Score: Eye Openin Verbal Response: 5 Motor Response: 6 Secondary Survey Constitutional: Please see MDM Head: Atraumatic, Midface stable, NO jaw malocclusion, No Cephalohematoma, and No Lacerations noted Eye: Pupils equal round and reactive to light, Extraocular muscles intact and No periorbital ecchymosis or stepoff, no evidence of entrapment, wound noted to the left eye, bleeding controlled spontaneously ENT: Oropharynx clear, no lacerations, no hemotympanum, no raccoon eyes or ely sign Cervical spine / Neck: No cervical spine bony tenderness, crepitance, or stepoff deformity Trachea midline Lungs: Clear to auscultation, No asymmetric rise and No crepitus, no flail chest Cardiac: Regular rate and rhythm and No murmurs Abdomen: Soft, Nontender and No rebound Pelvis: Pelvis stable to compression : No evidence of genital injury Back: No midline bony tenderness to thoracic/lumbar/sacral spines Neuro: At baseline, intact strength and sensation in bilateral upper and lower extremities. 2+ patellar reflexes bilaterally. Extremities: NO gross Deformities Psych: Normal affect Nursing triage notes reviewed, Vital signs reviewed MEDICAL DECISION MAKING: Chief Complaint: Fall, head trauma External records reviewed: Imaging reviewed: Reviewed CT scan of the head from May 2023 which showed chronic involutional changes. Medications reviewed. No blood thinners Factors affecting care: Memory issues at baseline, hyperlipidemia, hypertension Social determinants of health: Elderly History obtained from others: Family Consults: none MDM Narrative: Patient was initially hemodynamically stable, afebrile and nontoxic-appearing. Primary secondary trauma surveys concerning for the following: I considered the following differential diagnosis: ICH, cervical spine fracture, laceration I obtain images of the head and neck, patient's wound was cleaned. It was irrigated. Explored in full range of motion. ALL IMAGES (IF OBTAINED) HAVE BEEN PERSONALLY REVIEWED AND INTERPRETED BY MYSELF. CT scan head and cervical spine are negative The patient suffered lacerations to the left eyebrow On exam there was no evidence of foreign bodies. There was no evidence of neurovascular injury. Patient had normal sensation. There is no evidence of local joint space involvement at this time. Wound care applied (irrigation and/or local cleansing solution). Laceration repair was then performed please see procedure note. The patient was given signs and symptoms warnings for infection, such as increasing pain, redness, swelling, associated heat, pus or fever. Patient was given instructions for timely follow-up for removal. Patient agreed with the plan of care Procedure: Laceration repair. The procedure was performed by myself. Indication: Wound repair Risks and benefits: risks, benefits and alternatives were discussed Consent: Consent was obtained. Wound Details: Linear laceration to left upper eyelid, 1 mm in depth, approx imately 0.5 cm in length. No foreign bodies noted. Anesthesia: None (verbal consent obtained from patient). Wound prep: Patient was prepped and draped in the usual sterile fashion. Tetanus: Up-to-date Irrigation Solution: Saline Wound Preparation: Clean with Betadine. The wound was explored to its base in a bloodless field. Procedure Description: Applied Dermabond with close approximation, further stabilized the laceration with Steri-Strips. Patient tolerated the procedure well with no immediate complications The patient and/or family, caregivers express understanding. The patient and/or family, caregivers agrees with the plan. Shared decision making: I will have a discussion with the patient and or visitors regarding risk/benefits of further testing or admission. They will be made aware of of the risk/benefits inherent in this decision they will be given the opportunity to voice understanding. Total critical care time today provided was at least 0 minutes. This excludes separately billable procedures. Critical care time (if documented) is secondary to the patient having high probability of clinically significant/life threat ening deterioration in the patient's condition which required my urgent intervention. Impression: 1. Fall 2. Head trauma 3. Eye laceration Dispo: discharge This note was generated with [employer] dictation software. It may contain incorrect words, spelling, and punctuation that were not noted in review of the chart prior to signing. Radiography Diagnostic Testing: Clinical Impression(s) from Imaging Studies Brain CT 01/21/24 12:42 IMPRESSION: 1. No acute intracranial process as described above. 2. If symptoms persist, close follow-up examination or MRI of the brain is recommended. 3. Chronic involutional changes of the brain. Electronically Signed: Pietro Seo MD at 13:29 EDT , Cervical Spine CT 01/21/24 12:42 IMPRESSION: 1. No evidence of acute cervical spinal fracture or spondylolisthesis or 2. Degenerative changes. Electronically Signed: Pietro Seo MD at 13:34 EDT , Discharge Plan Triage Chief Complaint: Fall ED Provider: Louie Person Dx/Rx/DC Orders Instructions: Concussion Dc, ED Laceration, All Closures, ED Fall Prevention Prescriptions: No Action levothyroxine 75 mcg capsule PO atorvastatin 10 mg tablet 10 mg PO QDAY ramipril 10 mg capsule 10 mg PO QDAY fenofibrate 160 mg tablet 160 mg PO QDAY amlodipine 5 mg tablet 5 mg PO QDAY aspirin [Adult Aspirin Regimen] 81 mg tablet,delayed release (DR/EC) PO loratadine [Claritin] 10 mg tablet 10 mg PO QDAY cholecalciferol (vitamin D3) 5,000 unit capsule 5,000 unit PO DAILY Primary Care Provider: Ayde Obrien Referrals: Ayde Obrien MD [Primary Care Provider] - Activity Restrictions/Additional Instructions: Thank you for trusting us with your care today! Your imaging was negative for bleeding in the brain or fractures of your neck. Please take Tylenol (2 pills, 650 mg), ibuprofen (2 pills, 400 mg) every 6 hours as needed for pain and fever control. Please return to the emergency department if your symptoms change or worsen. Specifically if you notice loss of consciousness, redness, white-yellow discharge, increasing pain from her wound. Please return if you notice any asymmetry in eye movements. Please keep your wound clean and dry. Please apply peroxide and Neosporin daily for the next 3 days. Afterwards you can use soap and water. Please follow with your primary care physician for further outpatient evaluation and management. Print Language: German Disposition Disposition: Home, Self Care
[2024-01-21 12:05] VITALS: BP 155/84; PULSE 89; RESP 16; O2SAT 95
--- NOTE | 2024-01-21 12:42 | CT_ITS ---
INDICATION: head trauma EXAMINATION: CT BRAIN - CT Head or Brain W/O Contrast Injection TECHNIQUE: Multiple axial images were obtained of the head without intravenous contrast. The protocol utilizes one or more of the following dose reduction techniques: automated exposure control, adjustment of mA and/or kV according to patient size,and/or use of iterative reconstruction technique. IV Contrast dosage and agent: None. RADIATION DOSAGE (If Supplied By Facility): CTDIvol = ( 44.99 ) mGy, DLP = ( 779.24 ) mGycm COMPARISON: Prior study dated: 06/02/2023 FINDINGS: BRAIN PARENCHYMA: Minimal area of increased attenuation around the edge of the tentorium and basilar cistern identified by AI at area of bleeding however, there appears to be unchanged prior examination likely due to vascular structures. Focal bleed is doubtful. No evidence of acute infarct. No intracranial mass or mass effect. There is preservation of the styles/white matter interface. Periventricular deep white matter changes likely due to microvascular disease. Posterior fossa structures are unremarkable. CSF SPACES: Appropriate for age. No hydrocephalus. Basal cisterns are patent. CALVARIUM, SKULL BASE, PARANASAL SINUSES AND MASTOID AIR CELLS: Mild mucosal thickening of the right ethmoid and sphenoid sinuses. No discrete lytic or blastic abnormalities. ORBITS: Both globes, extraocular muscles, optic nerves and retrobulbar fat appear unremarkable. CT/Brain/Head without Contrast IMPRESSION: 1. No acute intracranial process as described above. 2. If symptoms persist, close follow-up examination or MRI of the brain is recommended. 3. Chronic involutional changes of the brain. Electronically Signed: Pietro Seo MD at 13:29 EDT ,
--- NOTE | 2024-01-21 12:42 | CT_ITS ---
INDICATION: neck pain after fall EXAMINATION: CT CERVICAL SPINE - CT Spine Cervical W/O Contrast Injection TECHNIQUE: Helically acquired images were obtained of the cervical spine. 2D reformatted images were reviewed. The protocol utilizes one or more of the following dose reduction techniques: automated exposure control, adjustment of mA and/or kV according to patient size,and/or use of iterative reconstruction technique. IV Contrast dosage and agent: None. RADIATION DOSAGE (If Supplied By Facility): CTDIvol = ( 17.60 ) mGy, DLP = ( 354.91 ) mGycm COMPARISON: No relevant prior comparison study available FINDINGS: VERTEBRAE: No fracture or traumatic subluxation. No discrete lytic or blastic abnormality. Straightening of the cervical spine. Alignment of the vertebral bodies is essentially unremarkable. Normal craniocervical junction and cervicothoracic junction. DISCS and SPINAL CANAL: Narrowing of C5-C6 disc space. Degenerative changes of the facet joints at multiple levels. Endplate spondylosis. No critical stenosis. NECK SOFT TISSUES: No prevertebral soft tissue swelling. There is no cervical adenopathy. LUNG APICES: Clear. CT/Spine Cervical without Contras IMPRESSION: 1. No evidence of acute cervical spinal fracture or spondylolisthesis or 2. Degenerative changes. Electronically Signed: Pietro Seo MD at 13:34 EDT ,
[2024-01-21 13:00] VITALS: BP 156/77; PULSE 98; RESP 16; O2SAT 99
[2024-01-21 14:00] VITALS: BP 161/75; PULSE 89; RESP 16; O2SAT 97
[2024-01-21 14:21] VITALS: BP 158/74; PULSE 92; RESP 16; TEMP 36.6; O2SAT 97
== END 2024-01-21 14:34 | disposition home or self-care (01) ==
PROVIDERS: Emergency Provider Emergency Medicine; PCP Family Medicine; Visit Provider Emergency Medicine
DX: S01.112A Laceration without foreign body of left eyelid and periocular area, initial encounter (principal); W18.39XA Other fall on same level, initial encounter; I10 Essential (primary) hypertension; E78.00 Pure hypercholesterolemia, unspecified; Z79.899 Other long term (current) drug therapy
CPT/HCPCS: 12011; 70450; 72125; 99283; A4216

== ENCOUNTER 2024-06-28 14:35 | Observation (INO) | payer MEDICARE, MEDICAID, SELFPAY ==
[2024-06-28] VITALS (8 sets, daily range): BP systolic 123–180; BP diastolic 68–92; PULSE 74–115; RESP 15–20; TEMP 35.9–37.1; O2SAT 51–100; BMI 23.3; BMI 25.0
--- NOTE | 2024-06-28 15:30 | EKG12_ITS ---
Test Reason : GENERAL Blood Pressure : */* mmHG Vent. Rate : 89 BPM Atrial Rate : 89 BPM P-R Int : 174 ms QRS Dur : 90 ms QT Int : 372 ms P-R-T Axes : 29 -3 10 degrees QTcB Int : 452 ms Normal sinus rhythm Minimal voltage criteria for LVH, may be normal variant ( R in aVL ) Borderline ECG Confirmed by OMI WINSTON, PORSCHE ([id number]), publications editor AMEYA JASSO ([id number]) on 06/30/2024 8:23:08 AM Referred By: Confirmed By: PORSCHE BRAGA MD
--- NOTE | 2024-06-28 15:34 | EDS_ITS ---
HPI History of Present Illness Chief Complaint: Complaint Informant: patient and family Onset/Context/Timing Onset: Yesterday Context: Sudden Onset Timing: Continuous Quality: Weakness Location: Generalized Worsened by: Nothing Relieved by: Nothing Narrative Narrative: Patient presents with decreased urine output for the last 12 hours. Family states the patient is normally incontinent and wears a diaper at bedtime. Family states that normally when the patient wakes up her diaper is saturated. Family states that it was dry today when she woke up. Patient states that it has been 12 hours since she last urinated. Patient denies any dysuria or hematuria yesterday. Patient was recently placed on antibiotic for urinary tract infection however, family states that the urgent care called today and stated that there was no urinary tract infection. Family states that the patient has gotten more weak today. Family states the patient usually needs assistance with walking but today patient is unable to even attempt ambulation. [facility] Medical History (Updated 06/28/24 @ 18:[address] Tee Estrada, DO) Progressive supranuclear palsy History of right breast cancer History of blood clots Cystocele hypercalcium Hypothyroidism Parathyroid abnormality High triglycerides High cholesterol HTN (hypertension) abnormal calcium level Goiter Breast cancer H/O transfusion of whole blood H/O blood clots Anemia Seasonal allergies Home Medications ?Medication ?Instructions ?Recorded ?Last Taken ?Type amlodipine 5 mg tablet 5 mg PO QDAY 07/30/17 Unknow n History aspirin 81 mg tablet,delayed PO 07/30/17 Unknown Histo ry release (Adult Aspirin Regimen) atorvastatin 10 mg tablet 10 mg PO QDAY 07/30/17 Unkno wn History fenofibrate 160 mg tablet 160 mg PO QDAY 07/30/17 Unkn own History levothyroxine 75 mcg capsule PO 07/30/17 Unknown Histo ry loratadine 10 mg tablet (Claritin) 10 mg PO QDAY 07/30 Unknown History ramipril 10 mg capsule 10 mg PO QDAY 07/30/17 Unkno wn History cholecalciferol (vitamin D3) 125 5,000 unit PO DAILY 1 Unknown History mcg (5,000 unit) capsule ondansetron 4 mg disintegrating 4 mg PO Q8H PRN PRN Na usea #10 tabs 01/21/24 Unknown Rx tablet Allergy/AdvReac Type Severity Reaction Status Date / Time adhesive tape Allergy Severe Unknown Verified 06/28/24 14:39 animal dander Allergy Severe Unknown Verified 06/28/24 14:39 latex Allergy Severe Unknown Verified 06/28/24 14:39 Seasonal Allergies: Uncoded Allergy NEEDS Verified 06/28/24 14:39 FOLLOW-UP Family History Mother Arthritis Breast cancer Heart disease Hypertension High cholesterol CVA (cerebral vascular accident) Father High cholesterol Hypertension Thyroid disorder Sister High cholesterol Thyroid disorder Brother Hypertension Surgical History H/O lumpectomy H/O colonoscopy hysterectomy with pelvic floor repair H/O partial thyroidectomy Social History Smoking Status: Never smoker second hand exposure: No alcohol intake: never substance use type: does not use caffeine: Yes what type of physical activity do you participate in: walking seatbelt use: always do you feel safe at home: Yes additional social history: Krista cruz are retired ROS ROS ED Constitutional Constitutional ED: Denies chills or fever(s) Eyes Eyes: Denies blurry vision or change in vision ENT ENT ED: Denies rhinorrhea or sore throat Cardiovascular Cardiovascular: Denies chest pain or palpitations Respiratory/Chest Respiratory/Chest: Denies cough or dyspnea Gastrointestinal Gastrointestinal: Denies nausea or vomiting Genitourinary Genitourinary ED: Denies dysuria or hematuria Musculoskeletal Musculoskeletal: Denies back pain or neck pain Integumentary Denies abscess or rash Neurologic Neurologic: Reports weakness; Denies headache(s) Allergic/Immunologic Allergic/Immunologic ED: Denies mouth swelling or urticaria EXAM Physical Exam Const Vital Signs: 06/28/24 14:36 06/28/24 14:39 06/28/24 16:36 Temperature 96.7 F L 96.7 F L Temperature Source Temporal Temporal Pulse Rate 94 94 76 Respiratory Rate 15 16 16 Blood Pressure 123/77 H 123/77 H 157/92 H Blood Pressure Mean 92 92 113 Pulse Ox 97 97 92 Oxygen Delivery Method Room Air Room Air Room Air 06/28/24 18:00 Temperature Temperature Source Pulse Rate Respiratory Rate Blood Pressure 145/78 H Blood Pressure Mean 100 Pulse Ox Oxygen Delivery Method Positive well nourished and well developed General Appearance ED: well developed and NAD Neck supple and no JVD Resp normal respiratory effort and clear to auscultation bilaterally Cardio regular rate and regular rhythm GI non-tender and non-distended Palpation: soft Neuro oriented x3, CN's II-XII intact bilaterally and no sensory deficits noted Sensorium / Orientation: alert Motor Exam: general weakness Psych mental status grossly normal MDM MDM MDM Narrative Medical decision making narrative: Differential diagnosis includes pneumonia, bronchitis, viral illness, urinary tract infection, cardiac dysrhythmia, cardiac ischemia, electrolyte abnormality, dehydration, and sepsis. EKG will be obtained to assess for cardiac dysrhythmia and cardiac ischemia. Chest x-ray will be obtained to assess for pneumonia and bronchitis. COVID-19, influenza, and RSV PCR will be obtained to assess for viral illness. CBC will be obtained to assess for leukocytosis and anemia. Basic metabolic profile will be obtained to assess for electrolyte abnormality and renal function. High-sensitivity troponin will be obtained to assess for cardiac ischemia. Serum lactate will be obtained to assess for sepsis. Urinalysis will be obtained to assess for urinary tract infection. Lab Data Attestation: I reviewed the patient's lab results. Lab results narrative: CBC was reviewed and was within normal limits. Metabolic profile was reviewed. Glucose was mildly elevated at 153. Potassium is slightly low at 3.4. The remainder is within normal limits. High-sensitivity troponin was reviewed and was normal at 4. Serum lactate was reviewed and was normal at 1.6. Labs: Laboratory Results - last 24 hr 06/28/24 06/28/24 15:45 16:36 WBC 8.9 RBC 4.77 Hgb 13.5 Hct 41.1 MCV 86.2 MCH 28.3 MCHC 32.8 RDW Std Deviation 43.5 RDW Coeff of Deanne 13.7 Plt Count 260 MPV 10.4 Immature Gran % (Auto) 0.400 Neut % (Auto) 69.4 Lymph % (Auto) 19.7 Benson % (Auto) 7.9 Eos % (Auto) 2.0 Baso % (Auto) 0.6 Absolute Neuts (auto) 6.2 Absolute Lymphs (auto) 1.75 Nucleated RBC % 0 Sodium 138 Potassium 3.4 L Chloride 103 Carbon Dioxide 27.0 Anion Gap 7 BUN 13 Creatinine 0.64 Estim Creat Clear Calc 58.04 Est GFR (MDRD) Af Amer 117 Est GFR (MDRD) Non-Af 97 BUN/Creatinine Ratio 20.3 H Glucose 153 H Lactic Acid 1.6 Calcium 10.3 H Troponin I High Sens 4 Urine Color Straw Urine Clarity Clear Urine pH 6.5 Ur Specific [place] 1.005 Urine Protein Negative Urine Glucose (UA) Normal Urine Ketones Negative Urine Occult Blood Negative Urine Nitrite Negative Urine Bilirubin Negative Urine Urobilinogen Normal Ur Leukocyte Esterase Negative Urine RBC 0 SEEN Urine WBC 0 SEEN Ur Squamous Epith Cells 0 SEEN Urine Bacteria 0 SEEN Urine Mucus 0 SEEN Radiography Chest X-Ray - ED: 1 View, Read by ED Physician, Read by Radiologist and No Acute Disease Diagnostic Testing: Clinical Impression(s) from Imaging Studies Chest X-Ray 06/28/24 16:15 IMPRESSION: 1. No acute cardiopulmonary process. Reading Location: [facility] Portable 1 view chest x-ray was obtained. On my independent interpretation, lung swenson are clear. There is normal cardiac silhouette. Bony thorax is normal. There is no acute process noted. Radiologist also interpreted the x- ray and agrees. EKG Initial EKG: Attestation: I personally reviewed and interpreted this EKG as follows: Interpretation: Sinus Rhythm (89) and No Acute Injury Pattern Comments: EKG was obtained. On my independent interpretation, it showed a normal sinus rhythm with a rate of 89. [place] interval, QRS interval, and QTc intervals were all normal. [place] was normal. There are no acute ST or T wave changes. Prior EKG tracings: not available for review Prior: No Prior Treatment and Re-Evaluation :: Patient was given IV fluids. Patient and family were advised of the findings. Family stated patient was incontinent of urine here but then still had 400 cc of urine in her bladder on straight cath after the episode of incontinence. Case was discussed with the hospitalist. She will admit the patient for observation. Patient and family understood and were agreeable with the plan. All questions were answered. Discharge Plan Dx/Rx/DC Orders Clinical Impression: General weakness, Inability to walk, Progressive supranuclear palsy Disposition Disposition: Acute Care [facility]
[2024-06-28 15:55] LABS: Absolute Lymphocyte Count 1.75 X10^3/uL (0.83-4.51); Absolute Neutrophil Count 6.2 X10^3/uL (2.0-7.7); Basophil# 0.05 X10^3/uL; Basophil% 0.6 % (0-1); Eosinophil# 0.18 X10^3/uL; Hematocrit 41.1 % (37-47); Hemoglobin 13.5 g/dL (12.0-15.0); Lymphocyte # 1.75 X10^3/ul (0.83-4.51); Lymphocyte % 19.7 % (19-41); Mean Corp Hgb Conc 32.8 g/dL (32-36); Mean Corpuscular Hgb 28.3 pg (27.0-32.0); Mean Corpuscular Volume 86.2 fL (81-99); Mean Platelet Vol. 10.4 fl (6.2-12.0); Monocyte% 7.9 % (0-10); NRBC Flagged by Analyzer 0 % (0-5); Neutrophil # 6.17 X10^3/uL (2.7-7.7); Neutrophil % 69.4 % (47-70); Platelet Count 260 K/mm3 (150-450); RBC Distribution Width CV 13.7 % (11.6-14.6); RBC Distribution Width SD 43.5 fl (35.1-43.9); Red Blood Count 4.77 M/mm3 (4.2-5.4); White Blood Count 8.9 K/mm3 (4.4-11.0)
[2024-06-28] MEDS: 0.9% Normal Saline (500mL Bag) 500 ML 1000 ML IV (16:05)
[2024-06-28 16:13] LABS: Anion Gap 7 (5-15); BUN 13 mg/dL (7-18); BUN/Creat Ratio 20.3 RATIO (10-20); Calcium,Total 10.3 mg/dL (8.5-10.1); Chloride 103 mmol/L (98-107); Creatinine, Serum 0.64 mg/dL (0.55-1.02); EST Glomerular Filtration Rate 97 mL/min (>60); Est Glom Filt Rate - Afr Amer 117 mL/min (>60); Estimated Creatinine Clearance 58.04 ml/min; Glucose 153 mg/dL (74-106); Potassium 3.4 mmol/L (3.5-5.1); Sodium Level 138 mmol/L (136-145); Troponin-I HS 4 pg/mL (3.0-54.0)
--- NOTE | 2024-06-28 16:15 | RAD_ITS ---
PROCEDURE: CHEST 1 VIEW (PORTABLE) REASON FOR EXAM: Weakness TECHNIQUE: Frontal view of the chest. COMPARISON: None. FINDINGS: The lungs are clear. No pleural effusion or pneumothorax. The cardiomediastinal silhouette is unremarkable. No acute osseous or soft tissue abnormality. Surgical clips are noted in the right axilla. RAD/Chest 1 View (Portable) IMPRESSION: 1. No acute cardiopulmonary process. Reading Location: [facility]
[2024-06-28 16:17] LABS: Lactic Acid 1.6 mmol/L (0.4-1.9)
[2024-06-28 16:40] LABS: Bacteria 0 SEEN /hpf (None Seen); Color, Urine Straw (Yellow); Glucose, Dipstick Normal (Normal); Ketone-Dipstick Negative (Negative); Leukocyte Esterase-Dipstick Negative /ul (Negative); Mucous, Urine 0 SEEN /hpf (<or=2+); Nitrite-Dipstick Negative (Negative); Occult Blood-Urine Negative /ul (Negative); Protein-Dipstick Negative (Negative); Specific Gravity, Urine 1.005 (1.002-1.030); Squamous Epithelial Cells - UA 0 SEEN /hpf (5-10); Urine Bilirubin Dipstick Negative (Negative); Urine Clarity Clear (Clear); Urine Urobilinogen Normal (Normal); Urine pH 6.5 (5.0 - 8.0); White Blood Cells 0 SEEN /hpf (0-5)
[2024-06-28 17:11] LABS: Red Blood Cells-Urine 0 SEEN /hpf (0-5)
--- NOTE | 2024-06-28 18:29 | HP.PCM.HOS_ITS ---
HPI - General General Date of Admission: 06/28/24 Date of Service: 06/28/24 Chief Complaint: Weakness/decreased urine output HPI Narrative KIARA VAUGHN, is a 73 F who presented to the emergency department at [facility] on 06/28/2024 with a chief complaint of decreased urinary output and weakness. Her significant other at bedside states that it has lasted for about the last 12 hours. She wears an adult diaper at bedtime and typically it saturated upon awakening however this morning it was dry when she woke up. There is been no dysuria or hematuria. It was recently thought she had a urinary tract infection and started an antibiotic however the urgent care called and the culture was negative so antibiotics were discontinued. The concern is that she is a bit weaker than her baseline and having trouble with assisting with ambulation. They state that she has chronic issues with mobility due to history of supranuclear palsy. Vital signs on presentation showed a temperature of 96.7, heart rate 94, respiratory rate 15, blood pressure 123/77 pulse ox was 97% on room air. CBC is completely unremarkable. Chemistry panel shows mild hypokalemia potassium of 3.4 but was otherwise unremarkable. Blood sugar was slightly elevated at 153 but this is nonfasting. Calcium is weighted chronically and is stable at 10.3. Troponin was normal at 4. UA is unremarkable. COVID/flu/RSV is unremarkable. Chest x-ray is unremarkable. [facility] Medical History Progressive supranuclear palsy History of right breast cancer History of blood clots Cystocele hypercalcium Hypothyroidism Parathyroid abnormality High triglycerides High cholesterol HTN (hypertension) abnormal calcium level Goiter Breast cancer H/O transfusion of whole blood H/O blood clots Anemia Seasonal allergies Home Medications ?Medication ?Instructions ?Recorded ?Last Taken ?Type amlodipine 5 mg tablet 5 mg PO QDAY 07/30/17 Unknow n History aspirin 81 mg tablet,delayed PO 07/30/17 Unknown Histo ry release (Adult Aspirin Regimen) levothyroxine 75 mcg capsule 75 mcg PO DAILY 07/30/17 Unknown History loratadine 10 mg tablet (Claritin) 10 mg PO QDAY 07/30 Unknown History cholecalciferol (vitamin D3) 125 5,000 unit PO DAILY 1 Unknown History mcg (5,000 unit) capsule ondansetron 4 mg disintegrating 4 mg PO Q8H PRN PRN Na usea #10 tabs 01/21/24 Unknown Rx tablet alendronate 70 mg tablet 70 mg PO .qweekly 06/28/24 U nknown History mirabegron 50 mg tablet,extended 50 mg PO DAILY Unknown History release 24 hr (Myrbetriq) sertraline 50 mg tablet 50 mg PO DAILY 06/28/24 Unkn own History Allergy/AdvReac Type Severity Reaction Status Date / Time adhesive tape Allergy Severe Unknown Verified 06/28/24 14:39 animal dander Allergy Severe Unknown Verified 06/28/24 14:39 latex Allergy Severe Unknown Verified 06/28/24 14:39 Seasonal Allergies: Uncoded Allergy NEEDS Verified 06/28/24 14:39 FOLLOW-UP Family History Mother Arthritis Breast cancer Heart disease Hypertension High cholesterol CVA (cerebral vascular accident) Father High cholesterol Hypertension Thyroid disorder Sister High cholesterol Thyroid disorder Brother Hypertension Surgical History H/O lumpectomy H/O colonoscopy hysterectomy with pelvic floor repair H/O partial thyroidectomy Social History Smoking Status: Never smoker second hand exposure: No alcohol intake: never substance use type: does not use caffeine: Yes what type of physical activity do you participate in: walking seatbelt use: always do you feel safe at home: Yes additional social history: Krista cruz are retired ROS Review of Systems ROS Unobtainable: other Details: Supranuclear palsy Vital Signs Vital Signs Vital Signs: 06/28/24 14:36 06/28/24 14:39 06/28/24 16:36 Temperature 96.7 F L 96.7 F L Temperature Source Temporal Temporal Pulse Rate 94 94 76 Respiratory Rate 15 16 16 Blood Pressure 123/77 H 123/77 H 157/92 H Blood Pressure Mean 92 92 113 Pulse Ox 97 97 92 Oxygen Delivery Method Room Air Room Air Room Air 06/28/24 18:00 Temperature Temperature Source Pulse Rate Respiratory Rate Blood Pressure 145/78 H Blood Pressure Mean 100 Pulse Ox Oxygen Delivery Method Weight Weight: 63.6 kg Body Mass Index (BMI) 23.3 Physical Exam Const alert, no apparent distress, average body habitus and well nourished Constitutional Narrative: Older, white female, clearly debilitated from supranuclear palsy, lying in bed, does not look toxic and appears comfortable, at bedside General Appearance: cooperative HEENT normocephalic, head/scalp atraumatic and hearing grossly normal bilaterally HEENT Narrative: Mucous membranes are slightly dry Resp normal respiratory effort, no retractions, no use of accessory muscles and clear to auscultation bilaterally Cardio regular rate, regular rhythm, S1 normal heart sound, S2 normal heart sound, no murmurs, no rub, no gallops and no clicks GI normal to inspection, nondistended, normoactive bowel sounds, soft to palpation and non-tender Extremity no clubbing, cyanosis or edema Extremity Narrative: 2+ pedal pulses Neuro oriented x3 and moves all extremities Neuro Narrative: Voluntarily moves all extremities but difficult for her to do so with coordinated movement due to her baseline motor disorder Speech: Negative for speech normal Psych Psych Narrative: Calm, pleasant, follows commands and makes good eye contact Results Lab / Micro Data 06/28/24 15:45 06/28/24 15:45 Labs: Laboratory Results - last 24 hr 06/28/24 15:45: WBC 8.9, RBC 4.77, Hgb 13.5, Hct 41.1, MCV 86.2, MCH 28.3, MCHC 32.8, RDW Std Deviation 43.5, RDW Coeff of Deanne 13.7, Plt Count 260, MPV 10.4, Immature Gran % (Auto) 0.400, Neut % (Auto) 69.4, Lymph % (Auto) 19.7, [place] % (Auto) 7.9, Eos % (Auto) 2.0, Baso % (Auto) 0.6, Absolute Neuts (auto) 6.2, Absolute Lymphs (auto) 1.75, Nucleated RBC % 0, Sodium 138, Potassium 3.4 L, Chloride 103, Carbon Dioxide 27.0, Anion Gap 7, BUN 13, Creatinine 0.64, Estim Creat Clear Calc 58.04, Est GFR (MDRD) Af Amer 117, Est GFR (MDRD) Non-Af 97, B UN/Creatinine Ratio 20.3 H, Glucose 153 H, Lactic Acid 1.6, Calcium 10.3 H, Troponin I High Sens 4 06/28/24 16:36: Urine Color Straw, Urine Clarity Clear, Urine pH 6.5, Ur Specific [place] 1.005, Urine Protein Negative, Urine Glucose (UA) Normal, Urine Ketones Negative, Urine Occult Blood Negative, Urine Nitrite Negative, Urine Bilirubin Negative, Urine Urobilinogen Normal, Ur Leukocyte Esterase Negative, Urine RBC 0 SEEN, Urine WBC 0 SEEN, Ur Squamous Epith Cells 0 SEEN, Urine Bacteria 0 SEEN, Urine Mucus 0 SEEN Micro: Microbiology 06/28/24 15:45 Mucosa - Nose SARS-CoV-2, Influenza & RSV (PCR) - Final Imaging Radiology Impression Chest X-Ray 06/28/24 16:15 IMPRESSION: 1. No acute cardiopulmonary process. [facility] Assessment & Plan Assessment/Plan (1) Inability to walk: (2) General weakness: (3) Decreased urine output: PLAN: Plan Decreased urine output -UA is unremarkable -Does not appear to be significantly dehydrated but mild dehydration may be present -Will give IV fluids x 2 L -Monitor urine output -Patient is incontinent baseline Generalized weakness/debility-acute on chronic -Patient with history of progressive supranuclear palsy -Typically has mobility issues due to her chronic progressive neuromuscular disease however weakness is worse recently -PT/OT consultation -Speech therapy consultation History of progressive supranuclear palsy -Treatment as above History of osteoporosis -Restart alendronate at discharge -Continue home cholecalciferol Urinary incontinence -Continue home mirabegron Hypothyroidism -Continue home levothyroxine -Check TSH Seasonal allergies -Continue home loratadine History of breast cancer -Remote History of essential hypertension hyperlipidemia -Currently on no medication for this DVT prophylaxis -Subcu Lovenox 40 mg daily CODE STATUS -DNR CCA with no intubation per discussion with family prior to admission Charges/Coding Visit Charges Inpatient E&M: 63902 Init Hosp L1
--- NOTE | 2024-06-28 18:55 | CASEMGMT ---
Care Management Face to Face with patient for initial transition planning/care coordination assessment in the ED.? This caption writer introduced self and role at [facility]. Patient alert and partially oriented. Patient willing to participate in assessment and is able to answer some questions appropriately however patient?s did most of the talking.? Care providers, pharmacy, and demographics verified. Admitting Diagnosis: General Weakness, Inability to walk, Progressive Supranuclear Palsy Other diagnosis history: Including but may not be limited to: Hx of right breast cancer, hx of blood clots, Hypothyroidism, HTN, Anemia. PCP: Dr. Obrien Specialists: Infectious Disease (Wed. will be first appointment and name of doctor is unknown but is believed to be through the [facility]). Urologist: Dr. Rangel, and PSP: Dr. Wells. [facility]acy[facility]. Insurance: [employer] Prescription Benefit: Yes Living Will/HPOA: ?Yes; DNR and POA is patient?s gerda Frankel. LNOK: Patient?s Jlues and patient?s 2 daughters Chrissy of [place] and Nydia of [place]. Jules is their step-father. Living Arrangements: Patient lives with her in a one story home with a basement which patient does not utilize. There are a total of 2 steps leading in/out of the house which patient is not able to navigate. Transportation: Patient?s . DME: 2 wheelchairs, rollator, grab bars in bathroom, shower bench, RTS, and HHS. HHC: Yes.? Patient has a SENIOR FIRMWARE ENGINEER that comes to the house every M and Th, 4 hours each day to assist patient with needs. SNF/Rehab: None previously. In addition, patient also has a stock house worker that comes to the home monthly to help with extra cleaning that?s private pay. Community Resources: Palliative Care comes out once every 6-8 weeks.? Patient?s reported he?s confused about what they are supposed to be doing and doesn?t know who they are through. Behavioral Health History: Denied. Patient goals: Patient wishes to discharge home, denies need for home health care at this time. Patient denies any further needs or concerns at this time. Disposition Plan: admission to acute; RN CM/SW to follow for discharge planning needs that may arise. Glendy Gonzalez, ORIENTAL RUG REPAIRER, VAULT INSTALLER
--- NOTE | 2024-06-28 21:35 | CASEMGMT ---
Social Work: Floral Specialist responded to [employer] code. Patient stabilized once social service agency director arrived. cheese factory worker provided comfort/support to patient, patient's , patient's sister and patient's daughter. No additional concerns/needs at this time. Patient's daughter spending the night. Glendy Gonzalez, WIRE TECHNICIAN, SLEEP TECH
--- NOTE | 2024-06-28 21:37 | CT_ITS ---
PROCEDURE: CHEST WITHOUT CONTRAST REASON FOR EXAM: Possible aspiration TECHNIQUE: Chest CT without contrast. Multiplanar reconstructions performed. COMPARISON: 06/28/2024 FINDINGS: Lungs/Pleura:Mild bibasilar atelectasis or scarring is present. No pulmonary consolidation.No pleural effusion or pneumothorax. Cardiovascular:The heart is normal in size.Mild coronary artery calcification is present.The aorta and pulmonary arteries are unremarkable. Pericardium:No effusion. Mediastinum:Unremarkable. Lymph nodes:No lymph node enlargement identified on this noncontrast CT. Bones:No acute osseous abnormality.Mild multilevel degenerative changes are present in the visualized spine. Soft tissues:Surgical clips are present in the right retropectoral region and in the right breast. Upper abdomen:Unremarkable. CT/Chest without Contrast IMPRESSION: 1. No acute pulmonary abnormality. 2. Mild bibasilar atelectasis or scarring. Reading [facility]
[2024-06-28] MEDS: Lactated Ringers 1,000 ML 75 ML IV (22:22)
[2024-06-29] VITALS (7 sets, daily range): BP systolic 125–153; BP diastolic 59–87; PULSE 75–90; RESP 16–20; TEMP 36.3–37.1; O2SAT 92–99; BMI 25.1
--- NOTE | 2024-06-29 01:28 | NURSING ---
06/28/242125 This RN tried to give ordered Potassium melted in hot water, after the water cooled by spoon. Patient took one spoonful of water and choked. Patient coughed repeatedly, vomited, and turned blue. This RN called repiratory asking them to come to room [address] and then called [id number] to call a rapid response. This RN hooked up suction with a yankauer and suctioned the mouth. Charge nurse, Elizabeth entered room and put patient on 6L NC. Patient's face began to get pink.
[2024-06-29 05:18] LABS: Blood Gas Specimen Type VEN; O2 Delivery Device Not entered; SITE Not entered; VBG BASE EXCESS -3 mmol/L (-1.0-3.5); VBG Bicarbonate 22 mmol/L (22-26); VBG PO2 107 mmHg (25-40); VBG SO2 98 % (50-70); VBG TCO2 23 mmol/L (23-33); VBG pCO2 33.4 mmHg (41-51); VBG pH 7.42 (7.32-7.42)
[2024-06-29 05:45] LABS: Absolute Lymphocyte Count 1.85 X10^3/uL (0.83-4.51); Absolute Neutrophil Count 3.8 X10^3/uL (2.0-7.7); Basophil# 0.03 X10^3/uL; Basophil% 0.5 % (0-1); Eosinophil# 0.22 X10^3/uL; Eosinophils% 3.4 % (0-5); Hemoglobin 11.1 g/dL (12.0-15.0); Lymphocyte # 1.85 X10^3/ul (0.83-4.51); Lymphocyte % 28.9 % (19-41); Mean Corp Hgb Conc 32.6 g/dL (32-36); Mean Corpuscular Hgb 28.3 pg (27.0-32.0); Mean Corpuscular Volume 86.7 fL (81-99); Mean Platelet Vol. 10.4 fl (6.2-12.0); Monocyte# 0.51 X10^3/uL; NRBC Flagged by Analyzer 0 % (0-5); Neutrophil # 3.76 X10^3/uL (2.7-7.7); Neutrophil % 58.7 % (47-70); Platelet Count 223 K/mm3 (150-450); RBC Distribution Width CV 13.8 % (11.6-14.6); RBC Distribution Width SD 42.9 fl (35.1-43.9); Red Blood Count 3.92 M/mm3 (4.2-5.4); White Blood Count 6.4 K/mm3 (4.4-11.0)
[2024-06-29 06:23] LABS: AST(SGOT) 17 U/L (15-37); Alanine Aminotransfer ALT/SGPT 26 U/L (13-56); Albumin, Serum 3.1 g/dL (3.2-5.0); Alkaline Phosphatase 74 U/L (45-117); Anion Gap 7 (5-15); BUN 8 mg/dL (7-18); BUN/Creat Ratio 15.2 RATIO (10-20); Calcium,Total 8.8 mg/dL (8.5-10.1); Chloride 111 mmol/L (98-107); Creatinine, Serum 0.53 mg/dL (0.55-1.02); EST Glomerular Filtration Rate 121 mL/min (>60); Est Glom Filt Rate - Afr Amer 147 mL/min (>60); Estimated Creatinine Clearance 55.86 ml/min; Glucose 99 mg/dL (74-106); Magnesium 2.2 mg/dL (1.6-2.6); Phosphorus 2.8 mg/dL (2.5-4.9); Potassium 3.6 mmol/L (3.5-5.1); Protein, Total 6.1 g/dL (6.4-8.2); Sodium Level 142 mmol/L (136-145)
[2024-06-29] MEDS: Levothyroxine 75 MCG Tablet PO (08:20)
--- NOTE | 2024-06-29 08:21 | NURSING ---
speech therapy at bedside working with pt
[2024-06-29] MEDS: Sertraline 50 MG Tablet PO (08:23)
[2024-06-29] MEDS: Enoxaparin 40 MG/0.4 ML Syringe SC (09:27)
[2024-06-29] MEDS: Pantoprazole Sodium 40 MG in 0.9% Normal Saline (100mL MB+) 100 ML 330 MG IV (09:27)
[2024-06-29] MEDS: Lactated Ringers 1,000 ML 75 ML IV (10:00)
[2024-06-29] MEDS: Senna/Docusate Sodium 1 Tablet 2 TABLET PO (14:09)
--- NOTE | 2024-06-29 17:29 | PCM.PN.HOSP ---
Reason for Visit Reason for Visit: Diagnoses Difficulty in walking, not elsewhere classified (06/28/24) Anuria and oliguria (06/28/24) Weakness (06/28/24) Subjective Subjective Patient was seen and examined today, she had difficulty with oral intake today, says that as long as she goes slowly she usually does not have a problem at home. Gastroenterology was written to see the patient for possible PEG tube placement, does not feel that this is appropriate at this time, I talked with gastroenterology on the phone and since the patient had a barium swallow 2 months ago and was able to eat, he does not feel the patient needs to be seen so I have canceled his consult. Patient was admitted for decreased urine output at home, her labs do not show her to be significantly dehydrated, patient is incontinent at baseline and was given IV fluids. Patient will be seen by PT and OT as well as speech therapy. Objective Data Objective Data Vital Signs: Vital Signs Temp Pulse Resp BP Pulse Ox O2 Del Method O2 Flow Rate 97.4 F L 87 18 153/82 H 99 Room Air 2 06/29/24 14:06 06/29/24 14:06 06/29/24 14:06 06/29/24 14:06 06/29/24 14:06 06/29/24 14:06 06/29/24 00:50 Oxygen Flow Rate (L/min) 2 Oxygen Delivery Method Room Air Weight: 62 kg Body Mass Index (BMI) 25.1 Intake & Output: Intake and Output for Last 24 Hours 06/27/24 06/28/24 06/29/24 23:59 23:59 23:59 Intake Total 500 / 500 941.25 / 941.25 Output Total 1190 / 1190 Balance 500 / 500 -248.75 / -248.75 Lab / Micro Data 06/29/24 05:08 06/29/24 05:08 Labs: Laboratory Results - last 24 hr 06/29/24 05:08: WBC 6.4, RBC 3.92 L, Hgb 11.1 L, Hct 34.0 L, MCV 86.7, MCH 28.3, MCHC 32.6, RDW Std Deviation 42.9, RDW Coeff of Deanne 13.8, Plt Count 223, MPV 10.4, Immature Gran % (Auto) 0.500, Neut % (Auto) 58.7, Lymph % (Auto) 28.9, Rock % (Auto) 8.0, Eos % (Auto) 3.4, Baso % (Auto) 0.5, Absolute Neuts (auto) 3.8, Absolute Lymphs (auto) 1.85, Nucleated RBC % 0, Sodium 142, Potassium 3.6, Chloride 111 H, Carbon Dioxide 24.0, Anion Gap 7, BUN 8, Creatinine 0.53 L, Estim Creat Clear Calc 55.86, Est GFR (MDRD) Af Amer 147, Est GFR (MDRD) Non-Af 121, BUN/Creatinine Ratio 15.2, Glucose 99, Calcium 8.8, Phosphorus 2.8, Magnesium 2.2, Total Bilirubin 0.30, AST 17, ALT 26, Alkaline Phosphatase 74, Total Protein 6.1 L, Albumin 3.1 L, Globulin 3.0, Albumin/Globulin Ratio 1.0, TSH 2.680 Micro: Microbiology 06/28/24 15:45 Mucosa - Nose SARS-CoV-2, Influenza & RSV (PCR) - Final ABG Data ABG results: ABG 06/29/24 05:15 Specimen Type KRISTOPHER Sample Site Not entered VBG pH 7.42 VBG pO2 107 H VBG HCO3 22 VBG Total CO2 23 VBG O2 Sat (Calc) 98 H VBG Base Excess -3 L POC Mix VBG pCO2 Pt Tmp 33.4 L O2 Delivery Device Not entered Radiography Diagnostic Testing: Radiology Impression Chest X-Ray 06/28/24 16:15 IMPRESSION: 1. No acute cardiopulmonary process. Reading Location: [facility] Chest CT 06/28/24 21:37 IMPRESSION: 1. No acute pulmonary abnormality. 2. Mild bibasilar atelectasis or scarring. Reading Location: [facility] Physical Exam Const alert, oriented x3 and no apparent distress Constitutional Narrative: Patient does not readily carry on a conversation due to weakness, she appears older than her stated age General Appearance: cooperative, well kempt and well developed Orientation / Consciousness: awake, oriented to person, oriented to place and oriented to time HEENT normocephalic, head/scalp atraumatic and moist oral mucous membranes Eyes PERRL, EOMs intact bilaterally and conjunctivae normal Neck supple, no JVD, thyroid normal and no carotid bruits General: trachea midline Resp normal respiratory effort, no retractions, no use of accessory muscles and clear to auscultation bilaterally Auscultation: Negative for rales, rhonchi or wheezes Cardio regular rate, regular rhythm, S1 normal heart sound, S2 normal heart sound, no murmurs, no rub and no gallops GI normal to inspection, nondistended, normoactive bowel sounds, soft to palpation, non-tender and non-distended Extremity no clubbing, cyanosis or edema Skin no rashes or lesions noted General Skin Exam: no breakdown Neuro oriented x3, CN's II-XII intact bilaterally and moves all extremities Sensorium / Orientation: awake and alert Psych Psych Narrative: Patient has flat affect Assessment & Plan Assessment/Plan (1) General weakness: PLAN: Plan 1. Acute on chronic generalized weakness secondary to progressive supranuclear palsy-PT and OT will continue to see the patient, takes care of the patient at home #2 decreased urinary output per -patient's labs do not show definite kidney impairment or dehydration. Patient was given IV fluids #3 progressive supranuclear palsy-prognosis is poor with this disease, affects care, management, recovery, and prognosis #4 oropharyngeal dysphagia-speech therapy will work with patient, again patient's does not feel he wants to address a possible PEG tube #5 urinary incontinence-patient is on Myrbetriq Total clinical time spent by myself addressing the patient's medical issues, reviewing all of her data, and collaborating with patient's care team: 35 minutes Charges/Coding Visit Charges Inpatient E&M: 59439 Subs Hosp L2
[2024-06-29] MEDS: Acetaminophen 325 MG Tablet 650 MG PO (19:16)
[2024-06-29] MEDS: 0.9% Saline Lock 10 ML Syringe IV (22:25)
[2024-06-30 06:00] VITALS: BMI 25.0
[2024-06-30 06:20] VITALS: BP 149/87; PULSE 78; RESP 18; TEMP 36.6; O2SAT 97
[2024-06-30] MEDS: Levothyroxine 75 MCG Tablet PO (06:24)
[2024-06-30] MEDS: 0.9% Saline Lock 10 ML Syringe IV (06:25)
[2024-06-30 08:37] VITALS: O2SAT 96
--- NOTE | 2024-06-30 09:12 | CASEMGMT ---
Discharge Planning A list of?SNF providers including quality and resource use data and consistent with the patient's preferred geographic region, medical needs, and insurance network was created in CarePort Guide.? This list was provided to the SW. Nilam Corado Discharge Planning Asst.
[2024-06-30] MEDS: Sertraline 50 MG Tablet PO (09:21)
[2024-06-30] MEDS: Cholecalciferol (Vit D3) 125 MCG CAPSULE (5,000 UNITS) PO (09:21)
[2024-06-30] MEDS: Loratadine 10 MG Tablet PO (09:21)
[2024-06-30] MEDS: Enoxaparin 40 MG/0.4 ML Syringe SC (09:21)
[2024-06-30] MEDS: Pantoprazole Sodium 40 MG Tablet PO (09:23)
[2024-06-30 09:49] VITALS: BP 152/78; PULSE 86; RESP 16; TEMP 36.4; O2SAT 98
--- NOTE | 2024-06-30 11:09 | PCM.DC ---
Discharge Instructions Diet Discharge Diet: 2000 mg Sodium Diet DC O2, CPAP, BIPAP needs Home O2 Discharge instructions: No Dressing / Incision Discharge Activity: Return to Normal Activity Weight Bearing Status: Weight bearing as tolerated Dressing / Incision Call your doctor if you observe: Fever of 101 or Higher, Coldness, Increased Pain, Numbness or Tingling, Change in Color, Inability to urinate, Inability to have a bowel movement, Shortness of breath, Dizziness, Fainting spells, Swelling in the ankles, Chest pain, Prolonged hiccupping, Increased palpitations (irregular heartbeat) and Calf discomfort Follow Up Care When: IN 2 WEEKS Test Results: Test results from this visit will be discussed in further detail at your follow-up appointment, if applicable. 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 Attending Provider: David Smith Primary Care Provider: Ayde Obrien Consulting Providers: Grace Early; Bin Reina Instructions Additional Instructions / Restrictions: Patient should follow-up with on neurologist Discharge Orders/Prescriptions Prescriptions: Continued levothyroxine 75 mcg capsule 75 mcg PO DAILY loratadine [Claritin] 10 mg tablet 10 mg PO QDAY cholecalciferol (vitamin D3) 5,000 unit capsule 2,000 unit PO DAILY sertraline 50 mg tablet 50 mg PO DAILY mirabegron [Myrbetriq] 50 mg tablet extended release 24 hr 50 mg PO DAILY cyanocobalamin (vitamin B-12) 1,000 mcg capsule 1,000 mcg PO DAILY probotic 1 tab PO DAILY Held alendronate 70 mg tablet 70 mg PO .qweekly Hold Instructions: Hold for dysphagia. Discontinued cephalexin 250 mg capsule 500 mg PO Q6H Referrals / Follow Up: Ayde Obrien MD [Primary Care Provider] - Disposition Disposition (needs filled in before D/C Order can be placed): Home Health Service
--- NOTE | 2024-06-30 11:26 | CASEMGMT ---
Social Work SW met w/pt, daughter Mariya and in room in regard to discharge plan. They would prefer taking pt home rather than going somewhere for rehab. Daughter Mariya explains they have an aide who comes in already 8 hours a week, and she and her aunt alternate weekends to help. Pt has a lift chair at home that really helps pt to get up, and they use this to get pt into the w/c to the bathroom. They would like home health, and a bedside commode. They also are considering a hospital bed but for now will hold off. SW did advise family should they go home and need the hospital bed, the PCP can also help w/this. Family states understanding. Pt is to see PT/OT today, and this will help determine the definite plan. SW/OLU will continue to follow. FOX Smart
--- NOTE | 2024-06-30 11:32 | CASEMGMT ---
Met with patient to complete [place] form. [place] form explained to patient who voiced understanding and signed form. Original form placed in pt?s chart and copy provided to patient. Nilam Corado, Discharge Planning Asst
--- NOTE | 2024-06-30 11:58 | CASEMGMT ---
Discharge Planning A list of HH providers including quality and resource use data and consistent with the patient's preferred geographic region, medical needs, and insurance network was created in CarePort Guide.? This list was provided to the patient. Nilam Corado, Discharge Planning Asst.
--- NOTE | 2024-06-30 12:02 | CASEMGMT ---
Addendum entered by Karina Dye 06/30/24 15:35: RENEE RAINES into pt room, pt received BSC. Pt and family aware that [facility] accepted and they will plan to see pt on . Pt and dtr verbalize understanding and deny further needs at this time. Addendum entered by Karina Dye 06/30/24 13:53: Received confirmation that [facility] will be able to see pt on , updated dc info. Addendum entered by Karina Dye 06/30/24 13:32: [place] [facility] [place] this time via careport. Original Note: RN OLU into pt room, pt and dtr present. Spoke with PHYSICAL SECURITY ENGINEER and MURCIA who states pt safe to go home with [facility] and they would like [place]. Discussed having SN, PT, OT and ST. Pt and dtr agreeable to this. Pt states that they had [facility] in the past. He denies need for a list of options and would like to have a referral made to them. They also would like a BSC. Provided a verbal local in network list of DME companies, [facility] [place]. Pt actually went to [facility] this morning and was told to have this go through the insurance. Pt has a life vac, gait belt, walkers, BP cuff, toilet riser, w/c and transport w/c. Pt has aides 8 hours/wk. Pt and family deny any further needs. Updated hospitalist on dc plan. TC jackie Rueda at [facility], referral made.
--- NOTE | 2024-06-30 13:14 | PCM.DC.SUM ---
Providers Date of Admission: 06/28/24 Date of Discharge: 06/30/24 Primary Care Physician: Ayde Obrien MD Reason For Visit: DECREASED UO/WEAKNESS Diagnosis Discharge Diagnosis (1) General weakness: Status: Acute Code(s): R53.1 - Weakness Plan 73 year-old female was admitted for decreased urine output for last 12 hours prior to admission. Patient at baseline is urinary incontinent and wears a diaper at bedtime. Denies dysuria or hematuria. She was also recently put on antibiotic but urgent care called her that UA was negative for infection. 1. Acute on chronic generalized weakness secondary to progressive supranuclear palsy-patient was admitted [facility] floor. Patient denies burning micturition or increased frequency or urgency therefore no UTI. PT and OT will continue to see the patient, takes care of the patient at home #2: Decreased urinary output -clinically patient was dehydrated. Patient was given IV fluid. BUN/creatinine normal #3. Progressive supranuclear palsy: Patient is inability to look downward gaze and some upward gaze. Advised to follow-up with her neurologist. Patient also has mild bradykinesia, decreased balance. Prescription given for bedside commode. The patient has inability to get to the bathroom and therefore need BSC. #4. Oropharyngeal dysphagia-speech therapy evaluate the patient. Patient on modified diet, bite sized food. Hold Fosamax. Did not want PEG tube. #5. Chronic urinary incontinence-patient is on Myrbetriq Discharge medication reconciliation done. Discharge follow-up instructions completed. Discharge process discussed with the patient and all questions were answered to patient's satisfaction. Follow with PCP in 1 to 2 weeks Total time spent, exact 35 minutes on discharge meds reconciliation, examination, coordination of care with nurses and ancillary staff, review of imaging and blood test and discussion with the patient on follow-up instructions. Medications at Discharge Home Medications levothyroxine 75 mcg capsule 75 mcg PO DAILY 07/30/17 loratadine 10 mg tablet (Claritin) 10 mg PO QDAY 07/30/17 cholecalciferol (vitamin D3) 125 mcg (5,000 unit) capsule 2,000 unit PO DAILY 02/12/19 alendronate 70 mg tablet 70 mg PO .qweekly 06/28/24 Held on 06/30/24. Instructions: Hold for dysphagia. cyanocobalamin (vitamin B-12) 1,000 mcg capsule 1,000 mcg PO DAILY 06/28/24 mirabegron 50 mg tablet,extended release 24 hr (Myrbetriq) 50 mg PO DAILY 06/28/24 probotic 1 tab PO DAILY 06/28/24 sertraline 50 mg tablet 50 mg PO DAILY 06/28/24 Physical Exam Narrative Seen and examined. Patient does not have acute complaint but generalized weakness, debility due to chronic disease supranuclear palsy. She also has mild to moderate oropharyngeal dysphagia. Denies burning micturition/increased frequency or urgency. Physical exam General: Alert, Oriented x3, Cooperative HEENT: Atraumatic, PERRLA, inability of downward gaze and some upward gait but patient can move her eyebrows UP. Normocephalic Oral: No Gingival or Mucosal Lesions/ Ulcerations Neck: Supple, No JVD, Negative Carotid Bruits Chest wall/Lungs: Air entry diminished in bilateral lung bases. No crepitation/rhonchi Cardiovascular: Regular rate, Regular Rhythm, Normal S1, Normal S2, No M/G/R Abdomen: Bowel Sounds Present, Soft, Non Tender, Non-Distended : No dysuria. No renal angle tenderness. No suprapubic tenderness. Extremities: No edema, Capillary Refill Less than 3 Seconds Skin: No rashes, No breakdown Musculoskeletal: No Tenderness to Palpation of Joints or Extremities. ROM limited. Neurological: Flat face. Cranial nerves II-XII grossly intact, DTR 2+. Psych/Mental Status: Flat affect. Weight / BMI Weight Weight: 136 lb 3.931 oz Body Mass Index (BMI) 25.0 ABG / Lab / Microbiology Data 06/29/24 05:08 06/29/24 05:08 Microbiology: Microbiology 06/28/24 15:45 Mucosa - Nose SARS-CoV-2, Influenza & RSV (PCR) - Final D/C Instructions Discharge Diet: 2000 mg Sodium Diet Weight Bearing Status: Weight bearing as tolerated Call your doctor if you observe: Fever of 101 or Higher, Coldness, Increased Pain, Numbness or Tingling, Change in Color, Inability to urinate, Inability to have a bowel movement, Shortness of breath, Dizziness, Fainting spells, Swelling in the ankles, Chest pain, Prolonged hiccupping, Increased palpitations (irregular heartbeat) and Calf discomfort DC O2, CPAP, BIPAP Needs Home O2 Discharge instructions: No When: IN 2 WEEKS Meaningful Use Info Meaningful Use Meaningful Use Diagnoses (Choose all that apply): None applicable Ischemic Stroke Statin Dosing Therapy Reference: STATIN DOSE THERAPY REFERENCE: * Patients > 75 years receive moderate or high dose statin therapy. * Patients 75 years or YOUNGER should receive HIGH intensity statin dose unless contraindicated. You will be required to document reason for non-treatment if statin daily dose does not meet guidelines. 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 Attending Provider: David Smith Primary Care Provider: Ayde Obrien Consulting Providers: Grace Early; Bin Reina Instructions Additional Instructions / Restrictions: Patient should follow-up with on neurologist Discharge Orders/Prescriptions Prescriptions: Continued levothyroxine 75 mcg capsule 75 mcg PO DAILY loratadine [Claritin] 10 mg tablet 10 mg PO QDAY cholecalciferol (vitamin D3) 5,000 unit capsule 2,000 unit PO DAILY sertraline 50 mg tablet 50 mg PO DAILY mirabegron [Myrbetriq] 50 mg tablet extended release 24 hr 50 mg PO DAILY cyanocobalamin (vitamin B-12) 1,000 mcg capsule 1,000 mcg PO DAILY probotic 1 tab PO DAILY Held alendronate 70 mg tablet 70 mg PO .qweekly Hold Instructions: Hold for dysphagia. Discontinued cephalexin 250 mg capsule 500 mg PO Q6H Referrals / Follow Up: Ayde Obrien MD [Primary Care Provider] - Disposition Disposition (needs filled in before D/C Order can be placed): Home Health Service Charges/Coding Visit Charges Inpatient E&M: 53841 Disch Hosp >30min
[2024-06-30 15:00] VITALS: BP 154/83; PULSE 87; RESP 16; TEMP 36.4; O2SAT 98
--- NOTE | 2024-06-30 15:43 | CHAPLAIN ---
Type of Pastoral Visit _x__ Initial Visit ___ Follow-up Visit ___ On-call Visit ___ General Patient Visit ___ Spiritual Assessment ___ Family Conference ___ Bereavement ___ Rapid Response ___ Code Blue ___ Other (describe below) Pastoral Care Referral From _x__ Patient ___ Family ___ Nurse ___ Physician ___ Stations Superintendent ___ Investor ___ Other (describe below) Sacrament/Intervention _x__ Active listening ___ Anointing ___ Mormonism ___ Bereavement ___ Communion ___ Meri exploration ___ ___ Life review _x__ Prayer ___ Reconciliation ___ Sacrament of Sick _x__ Supportive presence ___ Wedding ___ Other (describe below) Pastoral Comments patient and two family members are in the room; pt has been seen by several staff members and support people this afternoon; pt has some verbal barriers but is interactive and answers simple questions; others fill in the blanks; all welcome spiritual care support and prayer for the discharge back to home; no other needs indicated
--- NOTE | 2024-06-30 16:05 | PHA.DC.MR.R ---
Pharmacy [place] Med Reconciliation Pharmacy Service has performed discharge medication reconciliation for this patient. No new medications at time of discharge medication review. Medications reviewedc are from previously reported home medications. The patient's discharge medication list was reviewed for discrepancies and discrepancies were resolved. Medications at Discharge Home Medications levothyroxine 75 mcg capsule 75 mcg PO DAILY 07/30/17 loratadine 10 mg tablet (Claritin) 10 mg PO QDAY 07/30/17 cholecalciferol (vitamin D3) 125 mcg (5,000 unit) capsule 2,000 unit PO DAILY 02/12/19 alendronate 70 mg tablet 70 mg PO .qweekly 06/28/24 Held on 06/30/24. Instructions: Hold for dysphagia. cyanocobalamin (vitamin B-12) 1,000 mcg capsule 1,000 mcg PO DAILY 06/28/24 mirabegron 50 mg tablet,extended release 24 hr (Myrbetriq) 50 mg PO DAILY 06/28/24 probotic 1 tab PO DAILY 06/28/24 sertraline 50 mg tablet 50 mg PO DAILY 06/28/24
== END 2024-06-30 17:07 | disposition home health service (06) ==
LOC: ED 18:33 → MS3 19:21
PROVIDERS: Admitting Provider Internal Medicine; Emergency Provider Emergency Medicine; PCP Family Medicine; Visit Provider Internal Medicine
DX: G23.1 Progressive supranuclear ophthalmoplegia [Steele-Richardson-Olszewski] (principal); R53.1 Weakness; I10 Essential (primary) hypertension; E78.00 Pure hypercholesterolemia, unspecified; Z79.83 Long term (current) use of bisphosphonates; R26.2 Difficulty in walking, not elsewhere classified; R73.9 Hyperglycemia, unspecified; Z79.82 Long term (current) use of aspirin; Z79.899 Other long term (current) drug therapy; Z86.718 Personal history of other venous thrombosis and embolism; R32 Unspecified urinary incontinence; E03.9 Hypothyroidism, unspecified; Z79.890 Hormone replacement therapy; R13.12 Dysphagia, oropharyngeal phase
CPT/HCPCS: 36415; 71045; 71250; 80048; 80053; 81001; 82803; 83605; 83735; 84100; 84443; 84484; 85025; 87631; 92610; 93005; 94668; 96361; 96365; 96372; 97162; 97166; 97530; 97535; 99221; 99284; P9612; A4216; G0378

== ENCOUNTER → 2024-09-30 | Outpatient (CLI) | payer MEDICARE, SELFPAY ==
[2024-09-30 18:04] LABS: Absolute Lymphocyte Count 2.28 X10^3/uL (0.83-4.51); Absolute Neutrophil Count 7.8 X10^3/uL (2.0-7.7); Basophil# 0.04 X10^3/uL; Basophil% 0.4 % (0-1); Eosinophil# 0.12 X10^3/uL; Eosinophils% 1.1 % (0-5); Hemoglobin 13.5 g/dL (12.0-15.0); Lymphocyte # 2.28 X10^3/ul (0.83-4.51); Lymphocyte % 20.9 % (19-41); Mean Corp Hgb Conc 32.9 g/dL (32-36); Mean Corpuscular Hgb 28.6 pg (27.0-32.0); Mean Corpuscular Volume 86.9 fL (81-99); Mean Platelet Vol. 11.4 fl (6.2-12.0); Monocyte# 0.61 X10^3/uL; Monocyte% 5.6 % (0-10); NRBC Flagged by Analyzer 0 % (0-5); Neutrophil # 7.78 X10^3/uL (2.7-7.7); Neutrophil % 71.4 % (47-70); Platelet Count 260 K/mm3 (150-450); RBC Distribution Width CV 13.1 % (11.6-14.6); RBC Distribution Width SD 41.2 fl (35.1-43.9); Red Blood Count 4.72 M/mm3 (4.2-5.4); White Blood Count 10.9 K/mm3 (4.4-11.0)
[2024-09-30 18:35] LABS: ALB/GLOB Ratio 1.5 RATIO (0.9-2.4); AST(SGOT) 22 U/L (<=31); Alanine Aminotransfer ALT/SGPT 23 U/L (<=34); Albumin, Serum 4.4 g/dL (3.4-4.8); Alkaline Phosphatase 98 U/L (35-104); Anion Gap 15 (5-15); BUN 16 mg/dL (4-19); BUN/Creat Ratio 23.2 RATIO (10-20); Calcium,Total 10.8 mg/dL (7.6-11.0); Carbon Dioxide 26.1 mmol/L (21.0-32.0); Chloride 102 mmol/L (98-108); Creatinine, Serum 0.68 mg/dL (0.70-1.20); EST Glomerular Filtration Rate 93 (>60); Glucose 101 mg/dL (70-99); Protein, Total 7.4 g/dL (5.9-8.4); Sodium Level 143 mmol/L (133-145); Total Bilirubin 0.53 mg/dL (0.00-1.30); Vitamin D,25 Hydroxy 40.7 ng/mL (30-100)
== END | disposition home or self-care (01) ==
LOC: MFPLAB 14:09
PROVIDERS: PCP Family Medicine; Referring Provider Family Medicine; Visit Provider Family Medicine
DX: D64.9 Anemia, unspecified (principal); R53.83 Other fatigue
CPT/HCPCS: 36415; 80053; 82306; 84443; 85025